=== PATIENT | female | born 1975 | race Caucasian/White ===

== ENCOUNTER 2016-06-11 21:49 | Emergency (ER) | payer MEDICAID ==
--- NOTE | 2016-06-11 21:54 | ER Document Report ---
[id number] by provider: 21:51 Mode of Arrival: Ambulatory Information source: Patient Notes: I have greeted and performed a rapid initial assessment of this patient. A comprehensive ED assessment and evaluation of the patient, analysis of test results and completion of the medical decision making process will be conducted by additional ED providers. TRAVEL OUTSIDE OF THE [place] IN LAST 30 DAYS: No - HPI Patient complains to provider of: LEFT ARM PAIN AND VOMITING Onset: This evening Onset/Duration: Sudden Context: PAIN IS FROM LEFT SHOULDER BLADE DOWN ARM. TOOK 4 BABY [employer]IRIN AT HOME. Quality of pain: Achy, Sharp Severity: Severe Pain Level: 5 Associated Symptoms: Nausea, Vomiting - X 4 Exacerbated by: Denies Relieved by: Denies Similar symptoms previously: No Recently seen / treated by doctor: No - Related Data Smoking: Cigarettes Frequency of alcohol use: None Drug Abuse: None Pertinent History: DM 1 Allergies/Adverse Reactions: Penicillins Allergy (Verified 02/06/16 07:49) Past Medical History Pulmonary Medical History: Reports: Hx Bronchitis Denies: Hx Asthma Neurological Medical History: Reports: Hx Migraine Endocrine Medical History: Reports: Hx Diabetes Mellitus Type 2 GI Medical History: Reports: Hx Gastritis Musculoskeltal Medical History: Reports Hx Musculoskeletal Trauma Traumatic Medical History: Reports: Hx Fractures Past Surgical History: Reports: Hx Oral Surgery - wisdom, Hx Orthopedic Surgery - Right foot, Hx Tonsillectomy, Hx Tubal Ligation - Immunizations Immunizations up to date: Yes Hx Diphtheria, Pertussis, Tetanus Vaccination: Yes Physical Exam - Vital signs Vitals: Temp Pulse Resp BP Pulse Ox 97.6 F 101 H 18 131/88 H 97 06/11/16 21:53 06/11/16 21:53 06/11/16 21:53 06/11/16 21:53 06/11/16 21:53 Course - Vital Signs Vital signs: Temp Pulse Resp BP Pulse Ox 98.5 F 101 H 20 99/68 L 96 06/11/16 23:28 06/11/16 21:53 06/11/16 23:26 06/11/16 23:26 06/11/16 23:26 - Laboratory Result Diagrams: 06/11/16 22:32 06/11/16 22:32 Laboratory results interpreted by me: 06/11/16 22:32 BUN 21 H Glucose 130 H Calcium 10.3 H AST 12 L Doctor's Discharge - Discharge Clinical Impression: Left shoulder pain Condition: Good Disposition: HOME, SELF-CARE Additional Instructions: You have been seen in the Emergency Department (ED) today for shoulder pain. Your workup and exam have not shown any acute abnormalities and you are likely suffering from muscle strain but there is no treatment that will fix your symptoms at this time. Please take the naproxen that has been prescribed as directed. You should also purchase a local lidocaine cream such as "aspercreme with lidocaine" and use per bottle instructions to the affected area. Apply heat to the area as often as you are able. Please return if your worsening pain, weakness, numbness, fever greater than 101 F, or any other symptoms that are concerning to you. Follow-up with your primary care doctor in the next 1-2 days. Prescriptions: Naproxen 500 mg PO BID #60 tablet Referrals: Timur Jean-Baptiste [employer] G[employer] DEALER [Primary Care Provider] - Follow up in 3-5 days
[2016-06-11 22:47] LABS: ABSOLUTE BASOPHILS # (AUTO) 0.1 10^3/uL (0.0-0.2); ABSOLUTE EOSINOPHILS # (AUTO) 0.2 10^3/uL (0.0-0.6); ABSOLUTE LYMPHOCYTES (AUTO) 2.7 10^3/uL (0.5-4.7); ABSOLUTE MONOCYTES (AUTO) 0.6 10^3/uL (0.1-1.4); ABSOLUTE NEUT (AUTO) 4.3 10^3/uL (1.7-8.2); BASOPHILS % (AUTO) 1.4 % (0-2); EOSINOPHILS % (AUTO) 2.1 % (0-6); HEMATOCRIT 43.6 % (36.0-47.0); HEMOGLOBIN 14.9 g/dL (12.0-15.5); HGB HCT DIFFERENCE 1.1; LYMPHOCYTES % (AUTO) 34.1 % (13-45); MEAN CORPUSCULAR HEMOGLOBIN 30.7 pg (27.0-33.4); MEAN CORPUSCULAR HGB CONC 34.2 g/dL (32.0-36.0); MEAN CORPUSCULAR VOLUME 90 fl (80-97); MONOCYTES % (AUTO) 7.7 % (3-13); RED BLOOD COUNT 4.87 10^6/uL (3.72-5.28); RED CELL DISTRIBUTION WIDTH 12.9 % (11.5-14.0); SEGMENTED NEUTROPHILS % (AUTO) 54.7 % (42-78); WHITE BLOOD COUNT 7.8 10^3/uL (4.0-10.5)
[2016-06-11 23:02] LABS: ALANINE AMINOTRANSFERASE 20 U/L (9-52); ALBUMIN 4.6 g/dL (3.5-5.0); ALKALINE PHOSPHATASE 71 U/L (38-126); ANION GAP 14 (5-19); ASPARTATE AMINO TRANSFERASE 12 U/L (14-36); BILIRUBIN,TOTAL 0.5 mg/dL (0.2-1.3); BLOOD UREA NITROGEN 21 mg/dL (7-20); CALCIUM 10.3 mg/dL (8.4-10.2); CARBON DIOXIDE 23 mmol/L (22-30); CHLORIDE 107 mmol/L (98-107); CREATINE KINASE 56 U/L (30-135); CREATININE RESULT 0.68 mg/dL (0.52-1.25); GLUCOSE 130 mg/dL (75-110); POTASSIUM 4.3 mmol/L (3.6-5.0); SODIUM 143.6 mmol/L (137-145); TOTAL PROTEIN 7.3 g/dL (6.3-8.2)
[2016-06-11] MEDS ORDERED: KETOROLAC TROMETHAMINE INJ/PF 30 MG/1 ML SDV IV ONE (23:13)
[2016-06-11] MEDS ORDERED: HYDROCODONE/ACETAMINOPHEN 5-325 MG 6 TAB/DSPK PO PRN (23:13)
[2016-06-11 23:14] LABS: CREATINE KINASE MB 0.62 ng/mL (<4.55); TROPONIN I < 0.012 ng/mL
--- NOTE | 2016-06-11 23:17 | ER Document Report ---
ED General - General Chief Complaint: Shoulder Pain Stated Complaint: PAIN DOWN LEFT ARM,VOMITING Mode of Arrival: Ambulatory Notes: Patient is a 41-year-old female without significant past medical history who presents with 7 hours of left scapular and shoulder pain. Describes the pain, sharp, severe pain. Unchanged since onset. She has not tried anything for relief of her pain. Denies a history of similar symptoms in the past. She has not seen her primary care physician regarding today's concerns. She denies any associated chest pain, shortness of breath, syncope, or abdominal pain. States she did have one episode of vomiting in association with this pain. States the pain does shoot down her left arm but denies any associated weakness or numbness. No trauma. TRAVEL OUTSIDE OF THE [place] IN LAST 30 DAYS: No - Related Data Allergies/Adverse Reactions: Penicillins Allergy (Verified 02/06/16 07:49) Past Medical History - General Information source: Patient - Social History Smoking Status: Current Every Day Smoker Frequency of alcohol use: None Drug Abuse: None Lives with: Spouse/Significant other Family History: Reviewed & Not Pertinent Patient has suicidal ideation: No Patient has homicidal ideation: No Pulmonary Medical History: Reports: Hx Bronchitis Denies: Hx Asthma Neurological Medical History: Reports: Hx Migraine Endocrine Medical History: Reports: Hx Diabetes Mellitus Type 2 Renal/ Medical History: Denies: Hx Peritoneal Dialysis GI Medical History: Reports: Hx Gastritis Musculoskeltal Medical History: Reports Hx Musculoskeletal Trauma Traumatic Medical History: Reports: Hx Fractures Past Surgical History: Reports: Hx Oral Surgery - wisdom, Hx Orthopedic Surgery - Right foot, Hx Tonsillectomy, Hx Tubal Ligation - Immunizations Immunizations up to date: Yes Hx Diphtheria, Pertussis, Tetanus Vaccination: Yes Hx Pneumococcal Vaccination: 02/09/14 Review of Systems - Review of Systems Notes: Constitutional: Negative for fever. HENT: Negative for sore throat. Eyes: Negative for visual changes. Cardiovascular: Negative for chest pain. Respiratory: Negative for shortness of breath. Gastrointestinal: Negative for abdominal pain, vomiting or diarrhea. Genitourinary: Negative for dysuria. Musculoskeletal: Positive for left shoulder pain Skin: Negative for rash. Neurological: Negative for headaches, weakness or numbness. 10 point ROS negative except as marked above and in HPI. Physical Exam - Vital signs Vitals: Temp Pulse Resp BP Pulse Ox 97.6 F 101 H 18 131/88 H 97 06/11/16 21:53 06/11/16 21:53 06/11/16 21:53 06/11/16 21:53 06/11/16 21:53 Interpretation: Tachycardic Notes: PHYSICAL EXAMINATION: GENERAL: Well-appearing, well-nourished and in no acute distress. HEAD: Atraumatic, normocephalic. EYES: Pupils equal round and reactive to light, extraocular movements intact, sclera anicteric, conjunctiva are normal. ENT: nares patent, oropharynx clear without exudates. Moist mucous membranes. NECK: Normal range of motion, supple without lymphadenopathy LUNGS: Breath sounds clear to auscultation bilaterally and equal. No wheezes rales or rhonchi. HEART: Regular rate and rhythm without murmurs ABDOMEN: Soft, nontender, normoactive bowel sounds. No guarding, no rebound. No masses appreciated. EXTREMITIES: Severe pain with abduction of the left shoulder past 90. Pain on palpation of the left superior portion of the scapula NEUROLOGICAL: No focal neurological deficits. Moves all extremities spontaneously and on command. PSYCH: Normal mood, normal affect. SKIN: Warm, Dry, normal turgor, no rashes or lesions noted. Course - Re-evaluation Re-evalutation: 06/11/16 23:17 Patient presents with left shoulder pain reproducible on exam over palpation of the trapezius and deltoid. There is a patient also has an associated neuropraxia. No focal neurologic deficits on exam. Clinical history is not consistent with ACS, pulmonary embolus or aortic dissection. EKG unremarkable. Cardiac markers were in triage are unremarkable. Chest x-ray is clear. Blood pressures are equal in both arms.At this time will discharge with return precautions and follow-up recommendations. Verbal discharge instructions given a the bedside and opportunity for questions given. Medication warnings reviewed. Patient is in agreement with this plan and has verbalized understanding of return precautions and the need for primary care follow-up in the next 24-72 hours. - Vital Signs Vital signs: Temp Pulse Resp BP Pulse Ox 98.5 F 101 H 20 99/68 L 96 06/11/16 23:28 06/11/16 21:53 06/11/16 23:26 06/11/16 23:26 06/11/16 23:26 - Laboratory Result Diagrams: 06/11/16 22:32 06/11/16 22:32 Laboratory results interpreted by me: 06/11/16 22:32 BUN 21 H Glucose 130 H Calcium 10.3 H AST 12 L - Diagnostic Test Radiology reviewed: Image reviewed, Reports reviewed Radiology results interpreted by me: 06/11/16 23:18 Chest x-ray: No acute infiltrate - EKG Interpretation by Me Additional EKG results interpreted by me: 06/11/16 23:18 Normal sinus rhythm. Rate 92. No ST elevations or depressions. QTC 441. Discharge - Discharge Clinical Impression: Left shoulder pain Qualifiers: Chronicity: acute Qualified Code(s): M25.512 - Pain in left shoulder Condition: Good Disposition: HOME, SELF-CARE Additional Instructions: You have been seen in the Emergency Department (ED) today for shoulder pain. Your workup and exam have not shown any acute abnormalities and you are likely suffering from muscle strain but there is no treatment that will fix your symptoms at this time. Please take the naproxen that has been prescribed as directed. You should also purchase a local lidocaine cream such as "aspercreme with lidocaine" and use per bottle instructions to the affected area. Apply heat to the area as often as you are able. Please return if your worsening pain, weakness, numbness, fever greater than 101 F, or any other symptoms that are concerning to you. Follow-up with your primary care doctor in the next 1-2 days. Prescriptions: Naproxen 500 mg PO BID #60 tablet Referrals: Timur Jean-Baptiste MINING ANALYST [Primary Care Provider] - Follow up in 3-5 days
[2016-06-11 23:28] VITALS: BP 99/68
--- NOTE | 2016-06-12 09:22 | EKG REPORT ---
SEVERITY:- BORDERLINE ECG - SINUS RHYTHM BORDERLINE T ABNORMALITIES, INFERIOR LEADS : Confirmed by: Sheridan Padilla 12-Jun-2016 09:21:43
--- NOTE | 2016-06-12 11:23 | EKG REPORT ---
SEVERITY:- NORMAL ECG - SINUS RHYTHM : Confirmed by: Sheridan Padilla 12-Jun-2016 11:22:59
== END 2016-06-11 23:41 | disposition home or self-care (01) ==
LOC: ER 21:49
DX: S44.92XA Injury of unspecified nerve at shoulder and upper arm level, left arm, initial encounter (principal); X58.XXXA Exposure to other specified factors, initial encounter; M25.512 Pain in left shoulder; R11.10 Vomiting, unspecified; F17.200 Nicotine dependence, unspecified, uncomplicated; E11.9 Type 2 diabetes mellitus without complications; R00.0 Tachycardia, unspecified
CPT/HCPCS: 93005 ×2; 99284; 36415; 82553; 82550; 85025; 80053; 84484; 71010; 93010 ×2; J1885

== ENCOUNTER → 2017-02-24 | Outpatient (CLI) | payer OTHER ==
[2017-02-24 10:26] LABS: ABSOLUTE EOSINOPHILS # (AUTO) 0.3 10^3/uL (0.0-0.6); ABSOLUTE LYMPHOCYTES (AUTO) 1.8 10^3/uL (0.5-4.7); ABSOLUTE MONOCYTES (AUTO) 0.4 10^3/uL (0.1-1.4); ABSOLUTE NEUT (AUTO) 4.4 10^3/uL (1.7-8.2); BASOPHILS % (AUTO) 0.7 % (0-2); EOSINOPHILS % (AUTO) 3.9 % (0-6); HEMATOCRIT 40.7 % (36.0-47.0); HEMOGLOBIN 14.2 g/dL (12.0-15.5); HGB HCT DIFFERENCE 1.9; LYMPHOCYTES % (AUTO) 25.6 % (13-45); MEAN CORPUSCULAR HEMOGLOBIN 31.2 pg (27.0-33.4); MEAN CORPUSCULAR VOLUME 89 fl (80-97); MONOCYTES % (AUTO) 5.5 % (3-13); RED BLOOD COUNT 4.56 10^6/uL (3.72-5.28); SEGMENTED NEUTROPHILS % (AUTO) 64.3 % (42-78); WHITE BLOOD COUNT 6.9 10^3/uL (4.0-10.5)
[2017-02-24 10:58] LABS: ALANINE AMINOTRANSFERASE 26 U/L (9-52); ALBUMIN 4.3 g/dL (3.5-5.0); ALKALINE PHOSPHATASE 72 U/L (38-126); ANION GAP 14 (5-19); ASPARTATE AMINO TRANSFERASE 10 U/L (14-36); BILIRUBIN,DIRECT 0.4 mg/dL (0.0-0.4); BILIRUBIN,TOTAL 0.5 mg/dL (0.2-1.3); BLOOD UREA NITROGEN 11 mg/dL (7-20); CALCIUM 9.5 mg/dL (8.4-10.2); CARBON DIOXIDE 23 mmol/L (22-30); CHLORIDE 107 mmol/L (98-107); CHOLESTEROL 162.53 mg/dL (0-200); CREATININE RESULT 0.54 mg/dL (0.52-1.25); Direct HDL 37 mg/dL (>40); GLUCOSE 161 mg/dL (75-110); POTASSIUM 4.8 mmol/L (3.6-5.0); SODIUM 143.5 mmol/L (137-145); TRIGLYCERIDES 193 mg/dL (<150)
[2017-02-24 11:09] LABS: DIRECT LDL 100 mg/dL (<100)
[2017-02-24 11:11] LABS: VLDL CHOLESTEROL 38.6 mg/dL (10-31)
--- NOTE | 2017-02-24 12:25 | RADIOLOGY REPORT (SQ) ---
EXAM DESCRIPTION: CHEST PA/LATERAL COMPLETED DATE/TIME: 02/24/2017 9:25 am REASON FOR STUDY: COPD COMPARISON: 06/11/2016 EXAM PARAMETERS: NUMBER OF VIEWS: two views TECHNIQUE: Digital Frontal and Lateral radiographic views of the chest acquired. RADIATION DOSE: NA LIMITATIONS: none FINDINGS: LUNGS AND PLEURA: No opacities, masses or pneumothorax. No pleural effusion. MEDIASTINUM AND HILAR STRUCTURES: No masses or contour abnormalities. HEART AND VASCULAR STRUCTURES: Heart normal size. No evidence for failure. BONES: No acute findings. HARDWARE: None in the chest. OTHER: No other significant finding. IMPRESSION: NO SIGNIFICANT RADIOGRAPHIC FINDING IN THE CHEST. TECHNICAL DOCUMENTATION: JOB ID: [id number] [employer]- All Rights Reserved
== END ==
LOC: OD 08:41
DX: E78.5 Hyperlipidemia, unspecified (principal); E10.8 Type 1 diabetes mellitus with unspecified complications; J44.9 Chronic obstructive pulmonary disease, unspecified
CPT/HCPCS: 36415; 71020; 80053; 80061; 83036; 84443; 85025

== ENCOUNTER 2017-03-22 17:09 | Inpatient (IN) | payer SELFPAY ==
--- NOTE | 2017-03-22 17:19 | ER Document Report ---
ED Medical Screen (RME) - General Chief Complaint: Shortness Of Breath Stated Complaint: SHORTNESS OF BREATH Time Seen by Provider: 03/22/17 17:13 Mode of Arrival: Wheelchair Information source: Patient Notes: 42-year-old female smoker presents with complaints of shortness of breath for the past 4 days. Patient denies a fever admits to nonproductive cough, patient has been smoking since she was 15 I have greeted and performed a rapid initial assessment of this patient. A comprehensive ED assessment and evaluation of the patient, analysis of test results and completion of the medical decision making process will be conducted by additional ED providers. PHYSICAL EXAMINATION: GENERAL: Well-appearing, well-nourished and in no acute distress. HEAD: Atraumatic, normocephalic. EYES: Pupils equal round extraocular movements intact, conjunctiva are normal. ENT: Nares patent NECK: Normal range of motion LUNGS: No respiratory distress Musculoskeletal: Normal range of motion NEUROLOGICAL: Normal speech, normal gait. PSYCH: Normal mood, normal affect. SKIN: Warm, Dry, normal turgor, no rashes or lesions noted. TRAVEL OUTSIDE OF THE [place] IN LAST 30 DAYS: No - Related Data Allergies/Adverse Reactions: Penicillins Allergy (Verified 03/22/17 17:10) Past Medical History Pulmonary Medical History: Reports: Hx Bronchitis Denies: Hx Asthma Neurological Medical History: Reports: Hx Migraine Endocrine Medical History: Reports: Hx Diabetes Mellitus Type 2 Renal/ Medical History: Denies: Hx Peritoneal Dialysis GI Medical History: Reports: Hx Gastritis Musculoskeltal Medical History: Reports Hx Musculoskeletal Trauma Traumatic Medical History: Reports: Hx Fractures Past Surgical History: Reports: Hx Oral Surgery - wisdom, Hx Orthopedic Surgery - Right foot, Hx Tonsillectomy, Hx Tubal Ligation - Immunizations Immunizations up to date: Yes Hx Diphtheria, Pertussis, Tetanus Vaccination: Yes Physical Exam - Vital signs Vitals: Temp Pulse Resp BP Pulse Ox 99.2 F 100 32 H 105/48 L 93 03/22/17 17:10 03/22/17 17:10 03/22/17 17:10 03/22/17 17:10 03/22/17 17:10 Course - Vital Signs Vital signs: Temp Pulse Resp BP Pulse Ox 99.2 F 100 32 H 105/48 L 93 03/22/17 17:10 03/22/17 17:10 03/22/17 17:10 03/22/17 17:10 03/22/17 17:10
[2017-03-22 17:52] LABS: ABSOLUTE EOSINOPHILS # (AUTO) 0.6 10^3/uL (0.0-0.6); ABSOLUTE LYMPHOCYTES (AUTO) 1.5 10^3/uL (0.5-4.7); ABSOLUTE MONOCYTES (AUTO) 0.7 10^3/uL (0.1-1.4); BASOPHILS % (AUTO) 0.1 % (0-2); EOSINOPHILS % (AUTO) 5.2 % (0-6); HEMATOCRIT 40.4 % (36.0-47.0); HEMOGLOBIN 14.2 g/dL (12.0-15.5); HGB HCT DIFFERENCE 2.2; LYMPHOCYTES % (AUTO) 13.8 % (13-45); MEAN CORPUSCULAR HGB CONC 35.1 g/dL (32.0-36.0); MEAN CORPUSCULAR VOLUME 88 fl (80-97); MONOCYTES % (AUTO) 6.5 % (3-13); RED BLOOD COUNT 4.58 10^6/uL (3.72-5.28); RED CELL DISTRIBUTION WIDTH 13.4 % (11.5-14.0); SEGMENTED NEUTROPHILS % (AUTO) 74.4 % (42-78); WHITE BLOOD COUNT 10.7 10^3/uL (4.0-10.5)
--- NOTE | 2017-03-22 17:54 | RADIOLOGY REPORT (SQ) ---
EXAM DESCRIPTION: CHEST SINGLE VIEW COMPLETED DATE/TIME: 03/22/2017 5:45 pm REASON FOR STUDY: sob COMPARISON: 06/11/2016 NUMBER OF VIEWS: Two view. TECHNIQUE: Frontal and lateral radiographic views of the chest acquired. LIMITATIONS: None. FINDINGS: LUNGS AND PLEURA: Mild perihilar interstitial changes. No consolidation, effusion, or pne umothorax. MEDIASTINUM AND HILAR STRUCTURES: No masses. No contour abnormalities. HEART AND VASCULAR STRUCTURES: Heart normal in size and contour. No evidence for failure. BONES: No acute findings. HARDWARE: None in the chest. OTHER: No other significant finding. IMPRESSION: REACTIVE AIRWAY DISEASE VERSUS VIRAL SYNDROME. NO CONSOLIDATION. TECHNICAL DOCUMENTATION: JOB ID: [id number] [employer]- All Rights Reserved
[2017-03-22 18:10] LABS: ALANINE AMINOTRANSFERASE 34 U/L (9-52); ALBUMIN 4.3 g/dL (3.5-5.0); ALKALINE PHOSPHATASE 114 U/L (38-126); ANION GAP 13 (5-19); ASPARTATE AMINO TRANSFERASE 12 U/L (14-36); BILIRUBIN,DIRECT 0.4 mg/dL (0.0-0.4); BILIRUBIN,TOTAL 0.6 mg/dL (0.2-1.3); BLOOD UREA NITROGEN 5 mg/dL (7-20); CALCIUM 9.7 mg/dL (8.4-10.2); CARBON DIOXIDE 26 mmol/L (22-30); CHLORIDE 104 mmol/L (98-107); CREATINE KINASE 58 U/L (30-135); CREATININE RESULT 0.56 mg/dL (0.52-1.25); GLUCOSE 187 mg/dL (75-110); TOTAL PROTEIN 7.1 g/dL (6.3-8.2)
[2017-03-22 18:21] LABS: APPEARANCE,URINE SLIGHTLY-CLOUDY; BILIRUBIN,URINE NEGATIVE (NEGATIVE); GLUCOSE, URINE NEGATIVE (NEGATIVE); KETONES,URINE NEGATIVE (NEGATIVE); LEUKOCYTE ESTERASE,URINE NEGATIVE (NEGATIVE); NITRITE,URINE NEGATIVE (NEGATIVE); PROTEIN,URINE NEGATIVE (NEGATIVE); URINE SPECIFIC GRAVITY 1.008; UROBILINOGEN,URINE NEGATIVE mg/dL (<2.0)
[2017-03-22 18:23] LABS: TROPONIN I < 0.012 ng/mL
[2017-03-22] MEDS ORDERED: ALBUTEROL SULFATE 0.083% NEB 2.5 MG/3 ML AMPUL NEB ONE ×2 (18:23→18:51)
--- NOTE | 2017-03-22 18:49 | ER Document Report ---
ED Respiratory Problem - General Mode of Arrival: Wheelchair Information source: Patient TRAVEL OUTSIDE OF THE [place] IN LAST 30 DAYS: No <AVTAR STALLINGS - Last Filed: 03/22/17 23:12> <FOX CARSON - Last Filed: 03/22/17 23:47> - General Chief Complaint: Shortness Of Breath Stated Complaint: SHORTNESS OF BREATH Time Seen by Provider: 03/22/17 17:13 Notes: Patient is a 42 year old female that presents to the emergency department complaining of shortness of breath and vomiting onset 2 days ago. Patient states that on 03/20/2017 she woke up and vomited then proceeded to go to work. Patient states she has not been to work since 03/20/2017. At bedside patient appears very uncomfortable and exhausted. Associated symptoms include chest pain , productive cough, and diaphoresis. Patient denies fever. (AVTAR STALLINGS) - Related Data Allergies/Adverse Reactions: Penicillins Allergy (Verified 03/22/17 17:10) Home Medications: Current Home Medications Insulin Detemir [Levemir Insulin 100 units/mL] 21 units SUBCUT BID 03/22/17 [ History] Past Medical History - General Information source: Patient - Social History Smoking Status: Smoker,Current Status Unk Cigarette use (# per day): No Chew tobacco use (# tins/day): No Smoking Education Provided: No Frequency of alcohol use: None Drug Abuse: None Family History: Reviewed & Not Pertinent Patient has suicidal ideation: No Patient has homicidal ideation: No Pulmonary Medical History: Reports: Hx Bronchitis Neurological Medical History: Reports: Hx Migraine Endocrine Medical History: Reports: Hx Diabetes Mellitus Type 2 GI Medical History: Reports: Hx Gastritis Musculoskeltal Medical History: Reports Hx Musculoskeletal Trauma Traumatic Medical History: Reports: Hx Fractures Past Surgical History: Reports: Hx Oral Surgery - wisdom, Hx Orthopedic Surgery - Right foot, Hx Tonsillectomy, Hx Tubal Ligation - Immunizations Immunizations up to date: Yes Hx Diphtheria, Pertussis, Tetanus Vaccination: Yes Hx Pneumococcal Vaccination: 02/09/14 <AVTAR STALLINGS - Last Filed: 03/22/17 23:12> Review of Systems - Review of Systems Constitutional: See HPI, Diaphoresis. denies: Fever EENT: No symptoms reported Cardiovascular: See HPI, Chest pain, Dyspnea Respiratory: See HPI, Cough - productive Gastrointestinal: No symptoms reported Genitourinary: No symptoms reported Female Genitourinary: No symptoms reported Musculoskeletal: No symptoms reported Skin: No symptoms reported Hematologic/Lymphatic: No symptoms reported Neurological/Psychological: No symptoms reported -: Yes All other systems reviewed and negative <CHANDRAKANTKRISBRADLY - Last Filed: 03/22/17 23:12> Physical Exam <AVTAR STALLINGS - Last Filed: 03/22/17 23:12> <FOX CARSON - Last Filed: 03/22/17 23:47> - Vital signs Vitals: Temp Pulse Resp BP Pulse Ox 99.2 F 100 32 H 105/48 L 93 03/22/17 17:10 03/22/17 17:10 03/22/17 17:10 03/22/17 17:10 03/22/17 17:10 - Notes Notes: GENERAL: Alert, patient is uncomfortable and exhausted. HEAD: Normocephalic, atraumatic. EYES: Pupils equal, round, and reactive to light. Extraocular movements intact. ENT: Oral mucosa moist, tongue midline. Nares patent, no nasal septal hematoma, TM's retracted. Clear rhinorrhea bilaterally. NECK: Full range of motion. Supple. Trachea midline. LUNGS: Tight with poor air movement and end expiratory wheezes. Respiratory distress. Tachypneic. HEART: Regular rate and rhythm. No murmurs, gallops, or rubs. ABDOMEN: Soft, non-tender. Non-distended. Bowel sounds present in all 4 quadrants. EXTREMITIES: Moves all 4 extremities spontaneously. No edema, radial and dorsalis pedis pulses 2/4 bilaterally. No cyanosis. NEUROLOGICAL: Alert and oriented x3. Normal speech. Biceps and patellar DTRs 2+ bilaterally. PSYCH: Normal affect, normal mood. SKIN: Warm, dry, normal turgor. No rashes or lesions noted. (AVTAR STALLINGS) Course - Laboratory Result Diagrams: 03/22/17 17:27 03/22/17 17:27 <AVTAR STALLINGS - Last Filed: 03/22/17 23:12> - Laboratory Result Diagrams: 03/22/17 17:27 03/22/17 17:27 <FOX CARSON - Last Filed: 03/22/17 23:47> - Re-evaluation Re-evalutation: 03/22/17 20:05 Presentation consistent with influenza, out of timeframe for Tamiflu, chest x- ray shows reactive airway disease versus viral syndrome, suspect patient has some underlying COPD given her history of smoking, no improvement in respiratory status despite 3 breathing treatments and Solu-Medrol. Discussed patient with Dr. More who agrees to admit the patient to his service for sick respiratory failure suspect COPD exacerbation and influenza. (FOX CARSON) - Vital Signs Vital signs: Temp Pulse Resp BP Pulse Ox 98.3 F 99 32 H 131/54 H 92 03/22/17 22:00 03/22/17 22:00 03/22/17 22:01 03/22/17 22:01 03/22/17 22:01 - Laboratory Laboratory results interpreted by me: 03/22/17 03/22/17 17:27 17:27 WBC 10.7 H BUN 5 L Glucose 187 H AST 12 L - EKG Interpretation by Me Additional EKG results interpreted by me: 03/22/17 20:06 EKG shows sinus rhythm rate 94, normal axis, normal intervals, no ST segment elevations or depressions, no T-wave inversions per my interpretation. (FOX CARSON) Discharge <AVTAR STALLINGS - Last Filed: 03/22/17 23:12> - Discharge Admitting Provider: Ioana More Unit Admitted: Telemetry <FOX CARSON - Last Filed: 03/22/17 23:47> - Discharge Clinical Impression: Influenza, Acute respiratory failure with hypoxia Condition: Serious Disposition: ADMITTED OBSERVATION Scribe Attestation: 03/22/17 23:47 I personally performed the services described in the documentation, reviewed and edited the documentation which was dictated to the scribe in my presence, and it accurately records my words and actions. (FOX CARSON) Scribe Documentation - Scribe Written by Will:: Will Shelton, 03/22/2017 19:00 acting as scribe for :: Ember <AVTAR STALLINGS - Last Filed: 03/22/17 23:12>
[2017-03-22] MEDS ORDERED: IPRATROPIUM/ALBUTEROL 0.5-2.5 MG/3 ML AMPUL NEB ONE (18:51)
[2017-03-22] MEDS ORDERED: METHYLPREDNISOLONE INJ 125 MG/2 ML SDV IV ONE (18:51)
[2017-03-22] MEDS ORDERED: KETOROLAC TROMETHAMINE 60 MG/2 ML SDV IV ONE (19:49)
[2017-03-22] MEDS ORDERED: IPRATROPIUM/ALBUTEROL 0.5-2.5 MG/3 ML AMPUL NEB PRN (20:03)
[2017-03-22] MEDS ORDERED: GUAIFENESIN SYRP 200 MG/10 ML UDC PO PRN (20:03)
[2017-03-22] MEDS ORDERED: CHLORPHENIRAMINE MALEATE 4 MG TABLET PO ONE (20:03)
[2017-03-22] MEDS ORDERED: DEXTROSE 50%-WATER 25 GM/50 ML DISP.SYRIN IV PRN ×2 (20:06)
[2017-03-22] MEDS ORDERED: DEXTROSE 40% GEL 15 GM TUBE PO PRN ×2 (20:06)
[2017-03-22] MEDS ORDERED: GLUCAGON,HUMAN RECOMB 1 MG INJ IM PRN (20:06)
--- NOTE | 2017-03-22 21:11 | EKG REPORT ---
SEVERITY:- NORMAL ECG - SINUS RHYTHM : Confirmed by: Félix Castellanos MD 22-Mar-2017 21:11:04
[2017-03-22] MEDS ORDERED: HEPARIN SOD (PORCINE) 5,000 UNIT/ML 1 ML SYRINGE SUBCUT SCH (22:00)
[2017-03-22] MEDS: GUAIFENESIN 600 MG TABLET.SA PO SCH (23:28)
[2017-03-22] MEDS: LEVOFLOXACIN 750 MG/D5W RTU 750 MG/150 ML RTUPB IV SCH (23:29)
[2017-03-22] MEDS: HEPARIN SOD (PORCINE) 5,000 UNIT/ML 1 ML SYRINGE SUBCUT SCH (23:33)
[2017-03-22] MEDS: FLUTICASONE NASAL SPRAY 50 MCG/SPRY 120 SPRAY/16 GM NASL SCH (23:38)
[2017-03-23] MEDS: KETOROLAC TROMETHAMINE INJ/PF 30 MG/1 ML SDV IV PRN ×2 (01:57→09:50)
[2017-03-23] MEDS: IPRATROPIUM/ALBUTEROL 0.5-2.5 MG/3 ML AMPUL NEB SCH ×4 (02:08→19:50)
--- NOTE | 2017-03-23 05:48 | PDOC H&P ---
History of Present Illness Admission Date/PCP: 03/22/17 20:03 [facility] Patient complains of: Shortness of breath and cough History of Present Illness: LESTER FREDERICK is a 42 year old female with a past medical history of diabetes , chronic bronchitis tobacco dependence, COPD and morbid obesity. Patient been her usual state of health until approximately 4 days ago noting shortness of breath and a nonproductive cough symptoms have progressively worsened she denies runny nose sore throat or fever. In the emergency room has oxygen saturations in the mid 80s on room air she is placed on oxygen and BiPAP, receives empiric antibiotics refer to the hospitalist for admission. Patient denies exposure to inhalation of smoke, allergen or volatile chemical. Patient is speaking in full sentences but provides poor effort during exam. She denies chest pain, nausea vomiting or diaphoresis. Past Medical History Pulmonary Medical History: Reports: Bronchitis, Chronic Obstructive Pulmonary Disease (COPD) Denies: Asthma Neurological Medical History: Reports: Migraine Endocrine Medical History: Reports: Diabetes Mellitus Type 2 Psychiatric Medical History: Reports: Tobacco Dependency Denies: Depression Past Surgical History Past Surgical History: Reports: Orthopedic Surgery - Right foot, Tonsillectomy, Tubal Ligation Social History Information Source: Patient Smoking Status: Current Every Day Smoker Cigarettes Packs Per Day: 0.5 Number of Years Smokin Frequency of Alcohol Use: None Hx Recreational Drug Use: No Hx Prescription Drug Abuse: No - Advance Directive Resuscitation Status: Full Code Family History Family History: DM, Hypertension Parental Family History Reviewed: Yes Children Family History Reviewed: Yes Sibling(s) Family History Reviewed.: Yes Medication/Allergy Home Medications: Metformin HCl [Glucophage] 1,000 mg PO BIDACBS #60 tablet 10/09/13 Insulin Detemir [Levemir Insulin 100 units/mL] 21 units SUBCUT BID 03/22/17 Allergies/Adverse Reactions: Penicillins Allergy (Verified 03/22/17 17:10) Review of Systems Constitutional: ABSENT: chills, fever(s), headache(s), weight gain, weight loss Eyes: ABSENT: visual disturbances Ears: ABSENT: hearing changes Cardiovascular: ABSENT: chest pain, dyspnea on exertion, edema, orthropnea, palpitations Respiratory: ABSENT: cough, hemoptysis Gastrointestinal: ABSENT: abdominal pain, constipation, diarrhea, hematemesis, hematochezia, nausea, vomiting Genitourinary: ABSENT: dysuria, hematuria Musculoskeletal: ABSENT: joint swelling Integumentary: ABSENT: rash, wounds Neurological: ABSENT: abnormal gait, abnormal speech, confusion, dizziness, focal weakness, syncope Psychiatric: ABSENT: anxiety, depression, homidical ideation, suicidal ideation Endocrine: ABSENT: cold intolerance, heat intolerance, polydipsia, polyuria Hematologic/Lymphatic: ABSENT: easy bleeding, easy bruising Physical Exam Vital Signs: Temp Pulse Resp BP Pulse Ox 97.5 F 87 17 120/68 98 03/23/17 04:00 03/23/17 04:00 03/23/17 04:00 03/23/17 04:00 03/23/17 04:00 General appearance: PRESENT: no acute distress, well-developed, well-nourished Head exam: PRESENT: atraumatic, normocephalic Eye exam: PRESENT: conjunctiva pink, EOMI, PERRLA. ABSENT: scleral icterus Ear exam: PRESENT: normal external ear exam Mouth exam: PRESENT: moist, tongue midline Neck exam: ABSENT: carotid bruit, JVD, lymphadenopathy, thyromegaly Respiratory exam: PRESENT: clear to auscultation annabella. ABSENT: rales, rhonchi, wheezes Cardiovascular exam: PRESENT: RRR. ABSENT: diastolic murmur, rubs, systolic murmur Pulses: PRESENT: normal dorsalis pedis pul Vascular exam: PRESENT: normal capillary refill GI/Abdominal exam: PRESENT: normal bowel sounds, soft. ABSENT: distended, guarding, mass, organolmegaly, rebound, tenderness Rectal exam: PRESENT: deferred Extremities exam: PRESENT: full ROM. ABSENT: calf tenderness, clubbing, pedal edema Neurological exam: PRESENT: alert, awake, oriented to person, oriented to place , oriented to time, oriented to situation, CN II-XII grossly intact. ABSENT: motor sensory deficit Psychiatric exam: PRESENT: appropriate affect, normal mood. ABSENT: homicidal ideation, suicidal ideation Skin exam: PRESENT: dry, intact, warm. ABSENT: cyanosis, rash Results Impressions: Chest X-Ray 03/22/17 17:16 IMPRESSION: REACTIVE AIRWAY DISEASE VERSUS VIRAL SYNDROME. NO CONSOLIDATION. Assessment & Plan - Diagnosis (1) Acute exacerbation of chronic bronchitis Is this a current diagnosis for this admission?: Yes Plan: Discontinue tobacco, incentive spirometry, flutter valve, albuterol and Atrovent with empiric antibiotics follow-up CBC consider additional chest imaging. (2) COPD exacerbation Is this a current diagnosis for this admission?: Yes Plan: Please see #1 (3) Morbid obesity Is this a current diagnosis for this admission?: Yes Plan: Morbid obesity will evaluate for metabolic cause with evaluation of thyroid function and dietitian consultation (4) Diabetes Is this a current diagnosis for this admission?: Yes Plan: Hold metformin otherwise outpatient regiment with sliding scale insulin (5) Acute respiratory failure with hypoxia Is this a current diagnosis for this admission?: Yes Plan: Please see #1 - Time Time Spent: 30 to 50 Minutes
[2017-03-23 05:56] LABS: HEMATOCRIT 38.9 % (36.0-47.0); HEMOGLOBIN 13.4 g/dL (12.0-15.5); HGB HCT DIFFERENCE 1.3; MEAN CORPUSCULAR HEMOGLOBIN 31.1 pg (27.0-33.4); MEAN CORPUSCULAR HGB CONC 34.4 g/dL (32.0-36.0); MEAN CORPUSCULAR VOLUME 91 fl (80-97); RED BLOOD COUNT 4.29 10^6/uL (3.72-5.28); RED CELL DISTRIBUTION WIDTH 13.2 % (11.5-14.0); WHITE BLOOD COUNT 11.7 10^3/uL (4.0-10.5)
[2017-03-23] MEDS: HEPARIN SOD (PORCINE) 5,000 UNIT/ML 1 ML SYRINGE SUBCUT SCH ×3 (06:17→21:57)
[2017-03-23] MEDS: LANSOPRAZOLE 30 MG TAB.RAP.DR PO SCH ×2 (06:17→16:23)
[2017-03-23 06:22] LABS: ANION GAP 17 (5-19); BLOOD UREA NITROGEN 15 mg/dL (7-20); CALCIUM 9.3 mg/dL (8.4-10.2); CARBON DIOXIDE 22 mmol/L (22-30); CHLORIDE 101 mmol/L (98-107); CREATININE RESULT 0.74 mg/dL (0.52-1.25); POTASSIUM 4.7 mmol/L (3.6-5.0); SODIUM 140.1 mmol/L (137-145)
[2017-03-23 06:34] LABS: BAND NEUTROPHILS % (MANUAL) 4 % (3-5); BASOPHILS % (MANUAL) 0 % (0-2); EOSINOPHILS % (MANUAL) 1 % (0-6); LYMPHOCYTES % (MANUAL) 5 % (13-45); TOTAL CELLS COUNTED 100
[2017-03-23 06:35] LABS: GLUCOSE 417 mg/dL (75-110); POLYCHROMASIA SLIGHT; TOXIC GRANULATION SLIGHT
[2017-03-23] MEDS: INSULIN LISPRO 100 UNIT/ML 3 ML VIAL SUBCUT PRN ×3 (08:00→17:21)
[2017-03-23] MEDS: GUAIFENESIN 600 MG TABLET.SA PO SCH ×2 (09:05→21:57)
[2017-03-23] MEDS ORDERED: INSULIN DETEMIR 100 UNIT/ML 3 ML PEN SUBCUT SCH (10:00)
[2017-03-23] MEDS ORDERED: PREDNISONE 20 MG TABLET PO SCH (10:00)
[2017-03-23] MEDS: FLUTICASONE NASAL SPRAY 50 MCG/SPRY 120 SPRAY/16 GM NASL SCH ×2 (11:08→21:58)
--- NOTE | 2017-03-23 12:09 | PDOC PROGRESS REPORT ---
Subjective Progress Note for:: 03/23/17 Subjective:: Patient is a 42-year-old female with a past medical history significant for diabetes, chronic bronchitis, COPD, obesity and tobacco abuse. The patient presented to the emergency room with a 4 day history of worsening shortness of breath. She also had nausea and vomiting for the 24 hours prior to admission as well. In the emergency room she was found to be quite hypoxic with oxygen saturations in the mid 80s on room air and she was placed on BiPAP support. She was admitted to the hospital. She currently is receiving IV Levaquin as well as p.o. prednisone. She remains on oxygen. Today she states that she is feeling somewhat better than when she first came into the hospital. She states she is still quite short of breath and does not feel as if she is moving air well. She has had no fever chills overnight. No chest pain or heart palpitations. Her nausea and vomiting have resolved. She is not having any abdominal pain. She states that she is not having diarrhea as well although she did have some diarrhea yesterday. She denies dysuria, frequency or hematuria. Physical Exam Vital Signs: Temp Pulse Resp BP Pulse Ox 97.4 F 71 21 H 127/71 H 94 03/23/17 08:00 03/23/17 08:06 03/23/17 08:06 03/23/17 08:00 03/23/17 08:06 Intake & Output 03/22/17 03/23/17 03/24/17 06:59 06:59 06:59 Intake Total 500 Balance 500 Weight 104.7 kg General appearance: PRESENT: no acute distress, well-developed, well-nourished Head exam: PRESENT: atraumatic, normocephalic Eye exam: PRESENT: conjunctiva pink, EOMI, PERRLA. ABSENT: scleral icterus Mouth exam: PRESENT: moist, tongue midline Respiratory exam: PRESENT: decreased breath sounds - Her lungs actually sound fairly clear. She just is not moving air well. Cardiovascular exam: PRESENT: RRR. ABSENT: diastolic murmur, rubs, systolic murmur GI/Abdominal exam: PRESENT: normal bowel sounds, soft. ABSENT: distended, guarding, mass, organolmegaly, rebound, tenderness Rectal exam: PRESENT: deferred Extremities exam: PRESENT: full ROM. ABSENT: calf tenderness, clubbing, pedal edema Musculoskeletal exam: PRESENT: ambulatory Neurological exam: PRESENT: alert, awake, oriented to person, oriented to place , oriented to time, oriented to situation, CN II-XII grossly intact. ABSENT: motor sensory deficit Psychiatric exam: PRESENT: appropriate affect, normal mood. ABSENT: homicidal ideation, suicidal ideation Skin exam: PRESENT: dry, intact, warm. ABSENT: cyanosis, rash Results Laboratory Results: 03/23/17 03:59 03/23/17 03:59 03/23/17 03/23/17 03:59 03:59 WBC 11.7 H RBC 4.29 Hgb 13.4 Hct 38.9 MCV 91 MCH 31.1 MCHC 34.4 RDW 13.2 Plt Count 290 Seg Neutrophils % Not Reportable Lymphocytes % Not Reportable Monocytes % Not Reportable Eosinophils % Not Reportable Basophils % Not Reportable Absolute Neutrophils Not Reportable Absolute Lymphocytes Not Reportable Absolute Monocytes Not Reportable Absolute Eosinophils Not Reportable Absolute Basophils Not Reportable Sodium 140.1 Potassium 4.7 Chloride 101 Carbon Dioxide 22 Anion Gap 17 BUN 15 Creatinine 0.74 Est GFR ( Amer) > 60 Est GFR (Non-Af Amer) > 60 Glucose 417 H* Calcium 9.3 Impressions: Chest X-Ray 03/22/17 17:16 IMPRESSION: REACTIVE AIRWAY DISEASE VERSUS VIRAL SYNDROME. NO CONSOLIDATION. Assessment & Plan - Diagnosis (1) Acute respiratory failure with hypoxia Is this a current diagnosis for this admission?: Yes Plan: The patient is continuing to require oxygen. She really does not seem to be wheezing. Her lungs sound fairly clear but she remains hypoxic. I am going to get a CT angiography to rule out underlying pulmonary embolus or pneumonia. Patient also has a long-standing history of smoking and we need to rule out any sort of mass lesion. She will continue oxygen support as needed. We will continue aggressive breathing treatments. (2) COPD exacerbation Is this a current diagnosis for this admission?: Yes Plan: It was felt that she was having a COPD exacerbation at the time of admission. I am going to place her on 40 mg of p.o. prednisone today. We can continue to taper rather quickly. She is not wheezing today. (3) Bronchitis Plan: I am going to get a CT scan of the chest to rule out any sort of underlying pneumonia. For now she will continue IV Levaquin. This is day #1 of treatment. (4) Obesity (BMI 35.0-39.9 without comorbidity) Plan: Previously documented his morbid obesity. The patient does not quite meet that diagnosis. Certainly her obesity is affecting her respiratory status. Dietary discretion is advised. (5) Diabetes Is this a current diagnosis for this admission?: Yes Plan: The patient has insulin requiring type 2 diabetes mellitus. She will continue Levemir 21 units twice daily along with sliding scale Humalog. She has severe hyperglycemia likely due to IV Solu-Medrol given in the emergency department. We may need to adjust her insulin regimen going forward. She is not going to receive any further IV Solu-Medrol. We will quickly taper her prednisone as she is not wheezing today. I will obtain a hemoglobin A1c to see what her overall blood sugar control is. - Time Time Spent with patient: 15-24 minutes - Inpatient Certification Medical Necessity: Need for IV Antibiotics - The patient's status will be changed from observation to a full admission. The patient has acute respiratory failure and she was not oxygen dependent prior to this hospitalization. She needs to be weaned off of oxygen. She is requiring parenteral antibiotics. She needs to have pulmonary embolism or underlying pneumonia ruled out. I believe she is going to require further treatment as an inpatient in the hospital. Her hospitalization will span greater than 2 midnights. Timing of disposition will be determined by her clinical course.
[2017-03-23] MEDS ORDERED: PREDNISONE 20 MG TABLET PO ONE (12:30)
--- NOTE | 2017-03-23 15:51 | RADIOLOGY REPORT (SQ) ---
EXAM DESCRIPTION: CTA CHEST COMPLETED DATE/TIME: 03/23/2017 3:33 pm REASON FOR STUDY: hypoxia, sob COMPARISON: None. TECHNIQUE: CT scan of the chest performed using helical scanning technique with dynamic intravenous contrast injection. Images reviewed with lung, soft tissue and bone windows. Reconstructed coronal and sagittal MPR images reviewed. Additional 3 dimensional post-processing performed to develop Maximal Intensity Projection images (SC P). All images stored on PACS. All CT scanners at this facility use dose modulation, iterative reconstruction, and/or weight based d osing when appropriate to reduce radiation dose to as low as reasonably achievable (ALARA). [facility]: Dose Right [facility]: CareDose [facility]: Dose Right [facility]: Teradose 4D [facility]: Inte[employer] IP Services CONTRAST TYPE AND DOSE: contrast/concentration: Isovue mg/ml; Total Contrast Delivered: 0.0 ml; Tot al Saline Delivered: 50.0 ml Contrast bolus optimized for the pulmonary arteries. Not diagnostic for the aorta. RENAL FUNCTION: GFR > 60. RADIATION DOSE: Up-to-date CT equipment and radiation dose reduction techniques were employed. CTDIv ol: 23.2 - 28.0 mGy. DLP: 890 mGy-cm. . LIMITATIONS: Patient motion. Timing of contrast bolus. FINDINGS: LUNGS AND PLEURA: Subsegmental airspace disease in the apical segment of both upper lobes and the lingula. No effusions. AORTA AND GREAT VESSELS: No aneurysm. Contrast bolus not optimized for the aorta. HEART: No pericardial effusion. Mild cardiomegaly. PULMONARY ARTERIES: No emboli visualized in the main pulmonary arteries or the segmental branches. HILAR AND MEDIASTINAL STRUCTURES: No identified masses or abnormal nodes. HARDWARE: None in the chest. UPPER ABDOMEN: No significant findings. Limited exam. THYROID AND OTHER SOFT TISSUES: No masses. No adenopathy. BONES: No acute or significant finding. 3D MIPS: Confirm above findings. OTHER: No other significant finding. IMPRESSION: 1. No PE. 2. Bilateral upper lobe pneumonia. COMMENT: Quality ID # [id number]: Final reports with documentation of one or more dose reduction techniques (e.g., Automated exposure control, adjustment of the mA and/or kV according to patient size, use of iterative reconstruction technique) TECHNICAL DOCUMENTATION: JOB ID: [id number] [employer]- All Rights Reserved
[2017-03-23] MEDS: INSULIN DETEMIR 100 UNIT/ML 3 ML PEN SUBCUT SCH (18:10)
[2017-03-23] MEDS ORDERED: IBUPROFEN 600 MG TABLET PO PRN ×2 (20:23→20:49)
[2017-03-23] MEDS: LEVOFLOXACIN 750 MG/D5W RTU 750 MG/150 ML RTUPB IV SCH (21:57)
[2017-03-24] MEDS: IPRATROPIUM/ALBUTEROL 0.5-2.5 MG/3 ML AMPUL NEB SCH ×3 (01:28→14:14)
[2017-03-24] MEDS: LANSOPRAZOLE 30 MG TAB.RAP.DR PO SCH (06:22)
[2017-03-24] MEDS: HEPARIN SOD (PORCINE) 5,000 UNIT/ML 1 ML SYRINGE SUBCUT SCH ×2 (06:22→13:09)
[2017-03-24] MEDS: INSULIN DETEMIR 100 UNIT/ML 3 ML PEN SUBCUT SCH (06:23)
[2017-03-24] MEDS: INSULIN LISPRO 100 UNIT/ML 3 ML VIAL SUBCUT PRN ×2 (08:15→12:03)
[2017-03-24] MEDS: GUAIFENESIN 600 MG TABLET.SA PO SCH (09:44)
[2017-03-24] MEDS: FLUTICASONE NASAL SPRAY 50 MCG/SPRY 120 SPRAY/16 GM NASL SCH (09:45)
[2017-03-24] MEDS ORDERED: PREDNISONE 20 MG TABLET PO SCH (10:00)
[2017-03-24 13:53] VITALS: BP 111/64
--- NOTE | 2017-03-24 16:17 | PDOC DISCHARGE SUMMARY ---
General - Admit/Disc Date/PCP Admission Date/Primary Care Provider: 03/23/17 12:09 [facility] Discharge Date: 03/24/17 - Discharge Diagnosis (1) Acute respiratory failure with hypoxia Is this a current diagnosis for this admission?: Yes Summary: Patient presented to the emergency department with a four-day history of progressively worsening shortness of breath. She was found to be hypoxic with initial oxygen saturations in the mid 80s on room air. She was placed on BiPAP which she continued overnight. A CTA was ordered to rule out underlying pulmonary embolus or pneumonia; there was no evidence of PE, however, it did revel a bilateral upper lobe pneumonia. Blood cultures remain negative at 24 hours. She has been successfully weaned to room air and is now maintaining oxygen saturations well ambulatory and is conversational without dyspnea. 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 She states that there is no possibility for her to remain in the hospital today. Risk of early discharge to include worsening respiratory status, readmission, sepsis, and even were discussed. Patient states that she is aware of and acknowledges these risks but continues to desire discharge home. At this time she is stable and will not qualify for home oxygen. She does have access to a home nebulizer. She will be discharged on levaquin, prednisone and Duonebs with recommendations to follow up with the [facility] within 1 week to establish care. (2) Bronchitis Is this a current diagnosis for this admission?: Yes Summary: As above. (3) COPD exacerbation Is this a current diagnosis for this admission?: Yes Summary: As above. (4) Diabetes Is this a current diagnosis for this admission?: Yes Summary: The patient has insulin requiring type 2 diabetes mellitus. Her home regimen of Levemir 21 units twice daily with sliding scale Humalog discontinued. She was noted to have severe hyperglycemia 2/2 to IV Solu-Medrol which improved with transition to p.o. prednisone. She does remain hyperglycemic in the mid- 200s, however, I expect this to improve with completion of steroid course. She was encouraged to watch her diet closely and follow-up with the [facility] to establish care; she has an appointment scheduled for March 27 at 1 PM. - Additional Information Resuscitation Status: Full Code Discharge Diet: Diabetic Discharge Activity: Activity As Tolerated Home Medications: RX: Metformin HCl [Glucophage] 1,000 mg PO BIDACBS #60 tablet 10/09/13 RX: Insulin Detemir [Levemir Insulin 100 units/mL] 21 units SUBCUT BID 03/22/17 Ipratropium/Albuterol Sulfate [Duoneb 3 ml Ampul] 3 ml NEB [id number] PRN #60 vial.neb 03/24/17 Levofloxacin [Levaquin 750 mg Tablet] 750 mg PO DAILY #7 tab 03/24/17 RX: Fluticasone Propionate [Flonase Nasal [place] 50 Mcg/[place] 16 gm] 2 spray NASL Q12 spray.pump 03/24/17 RX: Guaifenesin [Mucinex Sr 600 mg Tablet.sa] 600 mg PO Q12 #30 tablet.sa RX: Ibuprofen [Motrin 600 mg Tablet] 600 mg PO Q6HP PRN tablet 03/24/17 RX: Insulin Lispro [Humalog Insulin (Lispro) 100 unit/mL] 0 - 12 unit SUBCUT ACP PRN unit 03/24/17 RX: Prednisone [Deltasone 20 mg Tablet] 40 mg PO DAILY 5 Days tablet 03/24/17 History of Present Illness History of Present Illness: Per H&P by Dr. More: LESTER FREDERICK is a 42 year old female with a past medical history of diabetes, chronic bronchitis tobacco dependence, COPD and morbid obesity. Patient and her usual state of health until approximately 4 days ago noting shortness of breath and a nonproductive cough symptoms have progressively worsened she denies runny nose sore throat or fever. In the emergency room she has oxygen saturations in the mid 80s on room air she is placed on oxygen and BiPAP, received empiric antibiotics refer to the hospitalist for admission. Patient denies exposure to inhalation of smoke, allergen or volatile chemical. Patient is speaking in full sentences but provides poor effort during exam. She denies chest pain, nausea vomiting or diaphoresis. Physical Exam Vital Signs: Temp Pulse Resp BP Pulse Ox 98.5 F 83 16 111/64 99 03/24/17 13:50 03/24/17 14:14 03/24/17 14:14 03/24/17 13:50 03/24/17 13:50 Intake & Output 03/23/17 03/24/1703/25/17 06:59 06:59 06:59 Intake Total 1775 Balance 1775 General appearance: PRESENT: no acute distress, well-developed, well-nourished, other - overweight Head exam: PRESENT: atraumatic, normocephalic Eye exam: PRESENT: conjunctiva pink, EOMI, PERRLA. ABSENT: scleral icterus Ear exam: PRESENT: normal external ear exam Mouth exam: PRESENT: moist, tongue midline Neck exam: ABSENT: carotid bruit, JVD, lymphadenopathy, thyromegaly Respiratory exam: PRESENT: clear to auscultation annabella, decreased breath sounds - throughout; poor inspiratory effort, symmetrical, unlabored. ABSENT: rales, rhonchi, tachypnea, wheezes Cardiovascular exam: PRESENT: RRR, +S1, +S2. ABSENT: diastolic murmur, rubs, systolic murmur, tachycardia Pulses: PRESENT: normal dorsalis pedis pul Vascular exam: PRESENT: normal capillary refill GI/Abdominal exam: PRESENT: normal bowel sounds, soft. ABSENT: distended, guarding, mass, organolmegaly, rebound, tenderness Rectal exam: PRESENT: deferred Extremities exam: PRESENT: full ROM. ABSENT: calf tenderness, clubbing, pedal edema Neurological exam: PRESENT: alert, awake, oriented to person, oriented to place , oriented to time, oriented to situation, CN II-XII grossly intact. ABSENT: motor sensory deficit Psychiatric exam: PRESENT: appropriate affect, normal mood. ABSENT: homicidal ideation, suicidal ideation Skin exam: PRESENT: dry, intact, warm. ABSENT: cyanosis, rash Results Impressions: Chest X-Ray 03/22/17 17:16 IMPRESSION: REACTIVE AIRWAY DISEASE VERSUS VIRAL SYNDROME. NO CONSOLIDATION. Chest/Abdomen CTA 03/23/17 00:00 IMPRESSION: 1. No PE. 2. Bilateral upper lobe pneumonia. Qualifiers PATEINT BEING DISCHARGED WITH ANY OF THE FOLLOWING DIAGNOSIS?: No
== END 2017-03-24 15:59 | disposition home or self-care (01) | DRG 193 ==
LOC: ER 17:09 → EH 20:03 → UNDOADMOB 20:22 → 4N 22:41 → OBSVTOIN 03-23 12:09
PROVIDERS: ADMIT Internal Medicine; ATTEND Internal Medicine
PROC: 5A09457 Assistance with Respiratory Ventilation, 24-96 Consecutive Hours, Continuous Positive Airway Pressure (ICD-10-PCS; principal; 2017-03-23)
PROC: 3E0F73Z Introduction of Anti-inflammatory into Respiratory Tract, Via Natural or Artificial Opening (ICD-10-PCS; 2017-03-23)
DX: J18.9 Pneumonia, unspecified organism (principal); J96.01 Acute respiratory failure with hypoxia; J44.1 Chronic obstructive pulmonary disease with (acute) exacerbation; J44.0 Chronic obstructive pulmonary disease with (acute) lower respiratory infection; E11.9 Type 2 diabetes mellitus without complications; F17.210 Nicotine dependence, cigarettes, uncomplicated; G43.909 Migraine, unspecified, not intractable, without status migrainosus; E66.01 Morbid (severe) obesity due to excess calories; Z68.39 Body mass index [BMI] 39.0-39.9, adult; Z88.0 Allergy status to penicillin; Z83.3 Family history of diabetes mellitus; Z82.49 Family history of ischemic heart disease and other diseases of the circulatory system
CPT/HCPCS: 36415; 71010; 71275; 80048; 80053; 81001; 81025; 82550; 82553; 82962; 83880; 84484; 85025; 87040; 87804; 93005; 93010; 94640; 94660; 94799; 96374; 96375; 99285; G0378; J1644; J1815; J1885; J1956; J2930; J3490; J7512; J7620

== ENCOUNTER → 2017-03-27 | Outpatient (CLI) | payer OTHER | LOC: CCC 15:16 | DX: J18.9 Pneumonia, unspecified organism (principal) ==

== ENCOUNTER → 2017-03-28 | Outpatient (CLI) | payer OTHER | LOC: CCC 08:55 | DX: J18.9 Pneumonia, unspecified organism (principal) | CPT/HCPCS: 87205 ==

== ENCOUNTER 2017-08-14 19:19 | Emergency (ER) | payer SELFPAY ==
[2017-08-14 19:31] VITALS: BP 142/80
--- NOTE | 2017-08-14 20:02 | ER Document Report ---
HPI - HPI Patient complains to provider of: Right shoulder neck pain Pain Level: 3 Context: Patient is a 42-year-old female who is right-hand dominant presents with shoulder and neck pain. she states that this is been a constant pain but got worse over the past 4 days. She feels like she slept on it wrong. His been taking 800 mg Motrins at home. Denies any heat or ice. She still been utilizing her arm and not resting it is been heavy lifting throughout the house. She denies any recent trauma, fall, fevers or chills. Patient is a current smoker and diabetic - REPRODUCTIVE Reproductive: DENIES: : Past Medical History - Social History Smoking Status: Current Every Day Smoker Family History: DM, Hypertension Pulmonary Medical History: Reports: Hx Bronchitis, Hx COPD Denies: Hx Asthma Neurological Medical History: Reports: Hx Migraine Endocrine Medical History: Reports: Hx Diabetes Mellitus Type 2 Renal/ Medical History: Denies: Hx Peritoneal Dialysis GI Medical History: Reports: Hx Gastritis Musculoskeltal Medical History: Reports Hx Musculoskeletal Trauma Psychiatric Medical History: Denies: Hx Depression Traumatic Medical History: Reports: Hx Fractures Past Surgical History: Reports: Hx Oral Surgery - wisdom, Hx Orthopedic Surgery - Right foot, Hx Tonsillectomy, Hx Tubal Ligation - Immunizations Immunizations up to date: Yes Hx Diphtheria, Pertussis, Tetanus Vaccination: Yes Hx Pneumococcal Vaccination: 02/09/14 Vertical Provider Document - CONSTITUTIONAL Agree With Documented VS: Yes Notes: PHYSICAL EXAM GENERAL: Alert, interacts well. EXTREMITIES: Moves all 4 extremities spontaneously. Full range of motion of the right shoulder without any inhibitions and range of motion. No palpable or visible deformities no edema, radial and dorsalis pedis pulses 2/4 bilaterally. No cyanosis. NEUROLOGICAL: Alert and oriented x4. Normal speech. PSYCH: Normal affect, normal mood. SKIN: Warm, dry, normal turgor. No rashes or lesions noted. - INFECTION CONTROL TRAVEL OUTSIDE OF THE [place] IN LAST 30 DAYS: No Course - Re-evaluation Re-evalutation: 08/14/17 21:04 Patient is a 42-year-old female hemodynamic stable, no acute distress and afebrile. Presentation is not concerning for any evidence of adhesive capsulitis or frozen shoulder given patient's gender and past medical history. No evidence of a septic joint, gout flare, dislocation, or fracture on exam and imaging. Vitals wnl. Symptoms did improve after topical heat was applied. At this time, I do not see an indication for labs or further imaging. Will discharge with conservative measures, return precautions, and follow-up recommendations. - Vital Signs Vital signs: Temp Pulse Resp BP Pulse Ox 98.3 F 91 16 142/80 H 97 08/14/17 19:28 08/14/17 19:28 08/14/17 19:28 08/14/17 19:28 08/14/17 19:28 - Diagnostic Test Radiology reviewed: Image reviewed, Reports reviewed Discharge - Discharge Clinical Impression: Right shoulder pain Qualifiers: Chronicity: acute Qualified Code(s): M25.511 - Pain in right shoulder Condition: Good Disposition: HOME, SELF-CARE Instructions: Muscle Strain ([facility]), Exercise Program for the Shoulder ([facility]), Use of [id number] Ibuprofen ([facility]), Acetaminophen, Warm Packs ([facility]) Additional Instructions: You can alternate between 800 mg of Motrin and extra strength Tylenol every 2 hours for pain relief. Prescriptions: Cyclobenzaprine HCl [Flexeril 10 mg Tablet] 10 mg PO TIDP PRN #15 tab PRN Reason: [facility]errals: [facility] [NO LOCAL MD] - Follow up as needed
--- NOTE | 2017-08-14 20:48 | RADIOLOGY REPORT (SQ) ---
EXAM DESCRIPTION: SHOULDER RIGHT 2 OR MORE VIEWS COMPLETED DATE/TIME: 08/14/2017 8:17 pm REASON FOR STUDY: right shoulder pain COMPARISON: None. NUMBER OF VIEWS: Three views. TECHNIQUE: Internal rotation, external rotation, and Y view images acquired of the right shoulder. LIMITATIONS: None. FINDINGS: MINERALIZATION: Normal. BONES: No acute fracture or dislocation. No worrisome bone lesions. JOINTS: No dislocation. VISUALIZED LUNGS AND RIBS: No pneumothorax. No rib fracture. SOFT TISSUES: No radiopaque foreign body. OTHER: No other significant finding. IMPRESSION: NO RADIOGRAPHIC EVIDENCE OF ACUTE INJURY. TECHNICAL DOCUMENTATION: JOB ID: [id number] 2010 [employer]- All Rights Reserved Reading location - IP/workstation name: [email or web address]
[2017-08-14] MEDS ORDERED: KETOROLAC TROMETHAMINE INJ/PF 30 MG/1 ML SDV IM ONE (21:05)
== END 2017-08-14 21:22 | disposition home or self-care (01) ==
LOC: ER 19:19
DX: M25.511 Pain in right shoulder (principal); M54.2 Cervicalgia; J44.9 Chronic obstructive pulmonary disease, unspecified; E11.9 Type 2 diabetes mellitus without complications; F17.200 Nicotine dependence, unspecified, uncomplicated
CPT/HCPCS: 99283; 96372; 73030; J1885

== ENCOUNTER 2017-09-06 01:51 | Emergency (ER) | payer SELFPAY ==
--- NOTE | 2017-09-06 03:00 | ER Document Report ---
HPI - HPI Patient complains to provider of: sinus pain, ear pain Pain Level: 4 Context: Patient is a 42-year-old female comes emergency department for chief complaint of sinus pain, congestion, and bilateral ear pain. She denies cough, fever, neck pain. She denies shortness of breath, chest pain. She states that she has been sneezing and having worsening congestion for a while and over the past couple of days it has become much worse along with sinus pain. She states she thinks she had chills earlier today. Past medical history of diabetes, insulin- dependent, denies any other medical history other than smoking. He denies asthma or COPD history. - CONSTITUTIONAL Constitutional: DENIES: Fever, Chills - EENT EENT: REPORTS: Ear Pain - bilat - NEURO Neurology: REPORTS: Headache - REPRODUCTIVE Reproductive: DENIES: : Past Medical History - General Information source: Patient - Social History Smoking Status: Current Every Day Smoker Smoking Education Provided: Yes - <3 min Frequency of alcohol use: None Drug Abuse: None Lives with: Family Family History: DM, Hypertension Patient has suicidal ideation: No Patient has homicidal ideation: No Pulmonary Medical History: Reports: Hx Bronchitis, Hx COPD Denies: Hx Asthma Neurological Medical History: Reports: Hx Migraine Endocrine Medical History: Reports: Hx Diabetes Mellitus Type 2 Renal/ Medical History: Denies: Hx Peritoneal Dialysis GI Medical History: Reports: Hx Gastritis Musculoskeltal Medical History: Reports Hx Musculoskeletal Trauma Psychiatric Medical History: Denies: Hx Depression Traumatic Medical History: Reports: Hx Fractures Past Surgical History: Reports: Hx Oral Surgery - wisdom, Hx Orthopedic Surgery - Right foot, Hx Tonsillectomy, Hx Tubal Ligation - Immunizations Immunizations up to date: Yes Hx Diphtheria, Pertussis, Tetanus Vaccination: Yes Hx Pneumococcal Vaccination: 02/09/14 Vertical Provider Document - CONSTITUTIONAL General Appearance: WD/WN, No Apparent Distress - INFECTION CONTROL TRAVEL OUTSIDE OF THE [place] IN LAST 30 DAYS: No - HEENT HEENT: Atraumatic, Normocephalic. negative: Normal ENT Exam - Patient very tender over both maxillary sinuses, has some nasal congestion, mild tenderness over frontal sinuses, ear effusions bilaterally, normal mastoids and ear exam otherwise, unremarkable pharyngeal exam and neck exam - NECK Neck: Normal Inspection - RESPIRATORY Respiratory: Breath Sounds Normal, No Respiratory Distress - CARDIOVASCULAR Cardiovascular: Regular Rate, Regular Rhythm - GI/ABDOMEN Gastrointestinal: Abdomen Soft, Abdomen Non-Tender - BACK Back: Normal Inspection - NEURO Level of Consciousness: Awake, Alert, Appropriate - DERM Integumentary: Warm, Dry, No Rash Course - Re-evaluation Re-evalutation: Patient is very noticeable very tender sinuses especially over the maxillary sinuses. Clear lungs, normal neck and throat exam, unremarkable abdomen, no nuchal rigidity, patient well-appearing otherwise. No fever. Unremarkable vital signs. Ears appear to have effusion but no infection. Discussed with patient. Patient will have her accommodation for allergy medication as this appears to have precipitated her symptoms initially, patient will be placed on antibiotics because of her significant sinus pain, symptom management, primary care follow-up, and discussed return precautions in detail. Patient is allergic to penicillins and will therefore not be placed on amoxicillin or Augmentin. Patient states satisfaction and agreement with plan. - Vital Signs Vital signs: Temp Pulse Resp BP Pulse Ox 97.9 F 86 16 139/96 H 96 09/06/17 01:56 09/06/17 01:56 09/06/17 01:56 09/06/17 01:56 09/06/17 01:56 Discharge - Discharge Clinical Impression: Sinusitis Qualifiers: Sinusitis location: unspecified location Chronicity: acute Recurrence: non- recurrent Qualified Code(s): J01.90 - Acute sinusitis, unspecified Ear pain Qualifiers: Laterality: bilateral Qualified Code(s): H92.03 - Otalgia, bilateral Condition: Stable Disposition: HOME, SELF-CARE Additional Instructions: Your examination is consistent with a sinus infection and blocked eustachian tubes causing ear pain. Take doxycycline antibiotic due to sinus infection, take the Sudafed and Flonase as prescribed for congestion, I recommend antiallergy such as Zyrtec or Mariana daily as well. Stop smoking. Follow-up with primary care. Return if you worsen including difficulty breathing, fever, or any other concerning or worsening symptoms. Prescriptions: Doxycycline Hyclate 100 mg PO BID #14 capsule Fluticasone Propionate [Flonase Nasal Delano 50 Mcg/Delano 16 gm] 1 spray NASL Q12 #1 inhaler Pseudoephedrine HCl [Sudafed 12 Hour] 120 mg PO Q12H PRN #14 tablet.er PRN Reason: Forms: Return to Work
[2017-09-06 03:19] VITALS: BP 131/84
== END 2017-09-06 03:18 | disposition home or self-care (01) ==
LOC: ER 01:51
DX: J01.90 Acute sinusitis, unspecified (principal); H92.03 Otalgia, bilateral; R06.7 Sneezing; R51 Headache; E11.9 Type 2 diabetes mellitus without complications; Z79.4 Long term (current) use of insulin; F17.200 Nicotine dependence, unspecified, uncomplicated
CPT/HCPCS: 99282

== ENCOUNTER 2017-10-07 01:11 | Emergency (ER) | payer SELFPAY ==
[2017-10-07] MEDS ORDERED: ACETAMINOPHEN 325 MG TABLET PO ONE (03:22)
[2017-10-07] MEDS ORDERED: DEXAMETHASONE 4 MG TABLET PO ONE (03:22)
[2017-10-07] MEDS ORDERED: OXYMETAZOLINE HCL 0.05% NASAL SPRAY 15 ML BOTTLE NASL PRN (03:22)
--- NOTE | 2017-10-07 03:25 | ER Document Report ---
ED General - General Chief Complaint: Sore Throat Stated Complaint: SORE THROAT Time Seen by Provider: 10/07/17 02:20 Notes: Patient is a 42-year-old female with past medical history of non-insulin- dependent type 2 diabetes and morbid obesity who presents with 2 days of nasal congestion, sore throat and fatigue. Patient states that her sinus congestion associated that prevents her from being able to sleep at night. This is why she came to the emergency department tonight. She has tried Sudafed for relief of her symptoms without success. He seems to worsen her symptoms. She denies fever or constitutional symptoms. Multiple sick contacts. She has not seen her general doctor regarding today's concerns. She denies cough or sputum production. No headache, weakness or numbness. TRAVEL OUTSIDE OF THE [place] IN LAST 30 DAYS: No - Related Data Allergies/Adverse Reactions: Penicillins Allergy (Verified 03/22/17 17:10) Past Medical History - General Information source: Patient - Social History Smoking Status: Never Smoker Frequency of alcohol use: None Drug Abuse: None Lives with: Family Family History: DM, Hypertension Pulmonary Medical History: Reports: Hx Bronchitis, Hx COPD Denies: Hx Asthma Neurological Medical History: Reports: Hx Migraine Endocrine Medical History: Reports: Hx Diabetes Mellitus Type 2 Renal/ Medical History: Denies: Hx Peritoneal Dialysis GI Medical History: Reports: Hx Gastritis Musculoskeltal Medical History: Reports Hx Musculoskeletal Trauma Psychiatric Medical History: Denies: Hx Depression Traumatic Medical History: Reports: Hx Fractures Past Surgical History: Reports: Hx Oral Surgery - wisdom, Hx Orthopedic Surgery - Right foot, Hx Tonsillectomy, Hx Tubal Ligation - Immunizations Immunizations up to date: Yes Hx Diphtheria, Pertussis, Tetanus Vaccination: Yes Hx Pneumococcal Vaccination: 02/09/14 Review of Systems - Review of Systems Notes: Constitutional: Negative for fever. HENT: Positive for sore throat. Eyes: Negative for visual changes. Cardiovascular: Negative for chest pain. Respiratory: Negative for shortness of breath. Gastrointestinal: Negative for abdominal pain, vomiting or diarrhea. Genitourinary: Negative for dysuria. Musculoskeletal: Negative for back pain. Skin: Negative for rash. Neurological: Negative for headaches, weakness or numbness. 10 point ROS negative except as marked above and in HPI. Physical Exam - Vital signs Vitals: Temp Pulse Resp BP Pulse Ox 98.8 F 91 18 147/92 H 96 10/07/17 01:35 10/07/17 01:35 10/07/17 01:35 10/07/17 01:35 10/07/17 01:35 Interpretation: Hypertensive Notes: PHYSICAL EXAMINATION: GENERAL: Well-appearing, well-nourished and in no acute distress. HEAD: Atraumatic, normocephalic. EYES: Pupils equal round and reactive to light, extraocular movements intact, sclera anicteric, conjunctiva are normal. ENT: nares patent, oropharynx clear without exudates. Moist mucous membranes. Nasal congestion is present. NECK: Normal range of motion, bilateral anterior cervical lymphadenopathy that is tender to palpation. LUNGS: Breath sounds clear to auscultation bilaterally and equal. No wheezes rales or rhonchi. HEART: Regular rate and rhythm without murmurs ABDOMEN: Soft, nontender, normoactive bowel sounds. No guarding, no rebound. No masses appreciated. EXTREMITIES: Normal range of motion, no pitting or edema. No cyanosis. NEUROLOGICAL: No focal neurological deficits. Moves all extremities spontaneously and on command. PSYCH: Normal mood, normal affect. SKIN: Warm, Dry, normal turgor, no rashes or lesions noted. Course - Re-evaluation Re-evalutation: 10/07/17 03:22 Presentation is most consistent with a viral upper respiratory infection. Patient is overall well appearance, vitals within normal limits, well-hydrated. Patient denies any headache, neck pain, and has no evidence of meningismus on examination. Lungs are clear bilaterally. No evidence of respiratory distress. Based on clinical exam and history, I do not suspect an acute pneumonia, meningitis, strep pharyngitis, or an acute encephalitis. No laboratory or imaging testing is indicated at this time. At this time will discharge with return precautions and follow-up recommendations. Verbal discharge instructions given a the bedside and opportunity for questions given. Medication warnings reviewed. Patient is in agreement with this plan and has verbalized understanding of return precautions and the need for primary care follow-up in the next 24-72 hours. - Vital Signs Vital signs: Temp Pulse Resp BP Pulse Ox 98.8 F 91 18 147/92 H 96 10/07/17 01:35 10/07/17 01:35 10/07/17 01:35 10/07/17 01:35 10/07/17 01:35 Discharge - Discharge Clinical Impression: Viral upper respiratory infection, Sinus congestion Condition: Good Disposition: HOME, SELF-CARE Additional Instructions: Your symptoms are most likely due to a viral infection it should resolve over the next 7-14 days. You should take [id number] guanfacine per bottle instructions to help thin the mucus. For nasal congestion: I would recommend that you get [id number]-[id number] oxymetazoline also known is afrin. Use only per bottle instructions and be sure to never use this for more than 3 days if you can develop severe rebound congestion. You may also use tylenol or ibuprofen as needed for aches and thorat discomfort. Please be sure to drink plenty of fluids and get rest. Return to the emergency department he began having difficulty breathing, chest pain, persistent vomiting, or any other symptoms that are concerning to you.
[2017-10-07 03:49] VITALS: BP 141/97
== END 2017-10-07 03:50 | disposition home or self-care (01) ==
LOC: ER 01:11
DX: J06.9 Acute upper respiratory infection, unspecified (principal); B97.89 Other viral agents as the cause of diseases classified elsewhere; J02.9 Acute pharyngitis, unspecified; R09.81 Nasal congestion; R53.83 Other fatigue; E11.9 Type 2 diabetes mellitus without complications; Z79.4 Long term (current) use of insulin; Z88.0 Allergy status to penicillin
CPT/HCPCS: 99282; J3490

== ENCOUNTER 2017-10-26 19:58 | Emergency (ER) | payer SELFPAY ==
--- NOTE | 2017-10-26 21:20 | ER Document Report ---
ED General - General Chief Complaint: Rash Stated Complaint: RASH Time Seen by Provider: 10/26/17 21:14 Mode of Arrival: Ambulatory Information source: Patient Notes: 42-year-old female with a history of diabetes who presents to the emergency room with itchy rash to the lower extremities. Patient states she was out gardening she noted the rash shortly after. She does not remember any bites. She denies any fever, chills, nausea vomiting. She has tried cortisone cream, Benadryl and states that the Benadryl did nothing for the itch but made her sleepy. She states the cream did nothing as well. TRAVEL OUTSIDE OF THE [place] IN LAST 30 DAYS: No - HPI Onset: Yesterday Onset/Duration: Gradual Quality of pain: No pain Severity: None Pain Level: Denies Associated symptoms: denies: Chest pain, Fever, Shortness of breath Exacerbated by: Denies Relieved by: Denies Similar symptoms previously: No Recently seen / treated by doctor: No - Related Data Allergies/Adverse Reactions: Penicillins Allergy (Verified 03/22/17 17:10) Past Medical History - General Information source: Patient - Social History Smoking Status: Current Every Day Smoker Cigarette use (# per day): Yes - Half pack per day Chew tobacco use (# tins/day): No Smoking Education Provided: No Frequency of alcohol use: None Drug Abuse: None Lives with: Alone Family History: DM, Hypertension Pulmonary Medical History: Reports: Hx Bronchitis, Hx COPD Denies: Hx Asthma Neurological Medical History: Reports: Hx Migraine Endocrine Medical History: Reports: Hx Diabetes Mellitus Type 2 Renal/ Medical History: Denies: Hx Peritoneal Dialysis GI Medical History: Reports: Hx Gastritis Musculoskeltal Medical History: Reports Hx Musculoskeletal Trauma Psychiatric Medical History: Denies: Hx Depression Traumatic Medical History: Reports: Hx Fractures Past Surgical History: Reports: Hx Oral Surgery - wisdom, Hx Orthopedic Surgery - Right foot, Hx Tonsillectomy, Hx Tubal Ligation - Immunizations Immunizations up to date: Yes Hx Diphtheria, Pertussis, Tetanus Vaccination: Yes Hx Pneumococcal Vaccination: 02/09/14 Review of Systems - Review of Systems Constitutional: denies: Chills, Fever EENT: No symptoms reported Cardiovascular: No symptoms reported Respiratory: No symptoms reported Gastrointestinal: No symptoms reported Genitourinary: No symptoms reported Female Genitourinary: No symptoms reported Musculoskeletal: No symptoms reported Skin: See HPI Hematologic/Lymphatic: No symptoms reported Neurological/Psychological: No symptoms reported Physical Exam - Vital signs Vitals: Temp Pulse Resp BP Pulse Ox 98.3 F 102 H 20 146/88 H 96 10/26/17 20:04 10/26/17 20:04 10/26/17 20:04 10/26/17 20:04 10/26/17 20:04 Notes: Physical exam: GENERAL: 32-year-old female, alert and oriented 3, nontoxic appearing. HEAD: Atraumatic, normocephalic. EYES: Pupils equal round and reactive to light, extraocular movements intact, sclera anicteric, conjunctiva are normal. ENT: Moist mucous membranes. NECK: Normal range of motion, supple LUNGS: Breath sounds clear to auscultation bilaterally and equal. No wheezes rales or rhonchi. HEART: Regular rate and rhythm without murmurs, rubs or gallops. PSYCH: Normal mood, normal affect. SKIN: Warm, Dry, normal turgor, Right lower extremity patient has a 3 x 4 cm non-blanching, blotchy, nonraised rash on the lateral ankle. It is nontender. Patient complains that it is very itchy. Patient also has a 1 x 1 cm round area of erythema on the right proximal calf with the appearance of a small central bite. Patient has on the right medial proximal leg below the ankle, a one by one round lesion very similar to the right proximal calf. Patient has a 1 x 1 cm round lesion on the lateral proximal leg similar to the other 2 mentioned above. Extremities are neurovascularly intact with good cap refill. Course - Vital Signs Vital signs: Temp Pulse Resp BP Pulse Ox 98.4 F 88 16 139/87 H 96 10/26/17 21:36 10/26/17 21:36 10/26/17 21:36 10/26/17 21:36 10/26/17 21:36 Discharge - Discharge Clinical Impression: Rash Condition: Stable Disposition: HOME, SELF-CARE Additional Instructions: The medicines as prescribed. Can try oatmeal baths. Can also try Aveeno Also you could try Pepcid which is sold [id number] 1 tablet twice a day for the next few days. As we discussed, the steroids could adversely affect her sugar, so you should make sure to get into see your primary care doctor. Prescriptions: Hydroxyzine HCl [Atarax 25 mg Tablet] 1 - 2 tab PO QID #14 tablet Methylprednisolone [Medrol 4 mg Dosepack 21 Tab/Pack] 4 mg PO ASDIR PRN #21 tab.ds.pk PRN Reason: Forms: Return to Work
[2017-10-26 21:41] VITALS: BP 139/87
== END 2017-10-26 21:41 | disposition home or self-care (01) ==
LOC: ER 19:58
DX: R21 Rash and other nonspecific skin eruption (principal); L29.9 Pruritus, unspecified; F17.210 Nicotine dependence, cigarettes, uncomplicated; E11.9 Type 2 diabetes mellitus without complications; Z88.0 Allergy status to penicillin; Z98.51 Tubal ligation status
CPT/HCPCS: 99282

== ENCOUNTER 2017-12-25 18:30 | Emergency (ER) | payer SELFPAY ==
[2017-12-25] MEDS ORDERED: IPRATROPIUM/ALBUTEROL 0.5-2.5 MG/3 ML AMPUL NEB ONE (18:58)
[2017-12-25] MEDS ORDERED: PREDNISONE 20 MG TABLET PO ONE (18:58)
--- NOTE | 2017-12-25 19:05 | ER Document Report ---
HPI - HPI Patient complains to provider of: cough Pain Level: 5 Context: Patient is a 42-year-old female complaining of head and chest congestion, chest tightness, coughing times 5 days. Patient has a history of diabetes and pneumonia. Patient is a smoker. Associated Symptoms: Body/muscle aches, Nonproductive cough, Headache, Hurts to breath, Sinus pain/drainage, Shortness of breath, Sore throat Exacerbated by: Supine Relieved by: Denies Similar symptoms previously: Yes Recently seen / treated by doctor: No - ROS Systems Reviewed and Negative: Yes All other systems reviewed and negative - REPRODUCTIVE Reproductive: DENIES: : Past Medical History - General Information source: Patient - Social History Smoking Status: Current Every Day Smoker Frequency of alcohol use: None Drug Abuse: None Lives with: Family Family History: DM, Hypertension Pulmonary Medical History: Reports: Hx Bronchitis, Hx COPD, Hx Pneumonia Denies: Hx Asthma Neurological Medical History: Reports: Hx Migraine Endocrine Medical History: Reports: Hx Diabetes Mellitus Type 2 Renal/ Medical History: Denies: Hx Peritoneal Dialysis GI Medical History: Reports: Hx Gastritis Musculoskeletal Medical History: Reports Hx Musculoskeletal Trauma Psychiatric Medical History: Denies: Hx Depression Traumatic Medical History: Reports: Hx Fractures Past Surgical History: Reports: Hx Oral Surgery - wisdom, Hx Orthopedic Surgery - Right foot, Hx Tonsillectomy, Hx Tubal Ligation - Immunizations Immunizations up to date: Yes Hx Diphtheria, Pertussis, Tetanus Vaccination: Yes Hx Pneumococcal Vaccination: 02/09/14 Vertical Provider Document - CONSTITUTIONAL Agree With Documented VS: Yes Exam Limitations: No Limitations - INFECTION CONTROL TRAVEL OUTSIDE OF THE [place] IN LAST 30 DAYS: No - HEENT HEENT: Atraumatic, PERRLA, Pharyngeal Erythema. negative: Pharyngeal Exudate - NECK Neck: Normal Inspection, Supple - RESPIRATORY Respiratory: No Respiratory Distress, Wheezing - bilat. negative: Rhonchi - NEURO Level of Consciousness: Awake, Alert, Appropriate - DERM Integumentary: Warm, Dry Course - Re-evaluation Re-evalutation: 12/25/17 19:05 After performing a Medical Screening Examination, I estimate there is LOW risk for ACUTE CORONARY SYNDROME, PULMONARY EMBOLI, RESPIRATORY FAILURE, SEPSIS OR MENINGITIS, thus I consider the discharge disposition reasonable. I have reevaluated this patient multiple times and no significant life threatening changes are noted. The patient and I have discussed the diagnosis and risks, and we agree with discharging home with close follow-up. We also discussed returning to the Emergency Department immediately if new or worsening symptoms occur. We have discussed the symptoms which are most concerning (e.g., changing or worsening pain, trouble swallowing or breathing, neck stiffness, fever) that necessitate immediate return. 12/25/17 19:39 Chest x-ray is negative for infiltrate. These results were discussed with the patient. Patient reevaluated after nebulizer. Wheezing has improved but not completely resolved. Patient reports feeling better and breathing easier. No signs of respiratory distress. - Vital Signs Vital signs: Temp Pulse Resp BP Pulse Ox 99.2 F 99 16 152/94 H 96 12/25/17 18:35 12/25/17 18:35 12/25/17 18:35 12/25/17 18:35 12/25/17 18:35 Discharge - Discharge Clinical Impression: Sinusitis Qualifiers: Sinusitis location: pansinusitis Chronicity: acute Recurrence: non-recurrent Qualified Code(s): J01.40 - Acute pansinusitis, unspecified Condition: Stable Disposition: HOME, SELF-CARE Instructions: Antibiotic Therapy ([facility]), Cough Suppressant & Expectorant Medications, Sinusitis ([facility]), Steroid Medication Prescriptions: Albuterol Sulfate [Proair HFA Inhalation Aerosol 8.5 gm MDI] 2 puff IH Q4H PRN # 1 mdi PRN Reason: Albuterol Sulfate [Albuterol Sulfate 2.5mg/3 mL] 2.5 mg IH Q4H PRN #1 kit PRN Reason: ASTHMA Azithromycin [Zithromax 250 mg Tablet] 250 mg PO ASDIR #6 tablet Phenylephrine HCl/Cod/Prometh [Phenergan Vc-Codeine Syrup] 1 tsp PO Q4H PRN # 200 ml PRN Reason: Prednisone [Deltasone 10 mg Tablet] 20 mg PO BID #16 tablet Forms: Return to Work
[2017-12-25 19:50] VITALS: BP 148/90
--- NOTE | 2017-12-25 19:53 | RADIOLOGY REPORT (SQ) ---
EXAM DESCRIPTION: CHEST 2 VIEWS COMPLETED DATE/TIME: 12/25/2017 7:06 pm REASON FOR STUDY: cough, h/o pneumonia COMPARISON: 03/22/2017 EXAM PARAMETERS: NUMBER OF VIEWS: two views TECHNIQUE: Digital Frontal and Lateral radiographic views of the chest acquired. RADIATION DOSE: NA LIMITATIONS: none FINDINGS: LUNGS AND PLEURA: No opacities, masses or pneumothorax. No pleural effusion. MEDIASTINUM AND HILAR STRUCTURES: No masses or contour abnormalities. HEART AND VASCULAR STRUCTURES: Heart normal size. No evidence for failure. BONES: No acute findings. HARDWARE: None in the chest. OTHER: No other significant finding. IMPRESSION: NO ACUTE RADIOGRAPHIC FINDING IN THE CHEST. TECHNICAL DOCUMENTATION: JOB ID: [id number] [employer]- All Rights Reserved Reading location - IP/workstation name: [email or web address]
== END 2017-12-25 19:49 | disposition home or self-care (01) ==
LOC: ER 18:30
DX: J01.40 Acute pansinusitis, unspecified (principal); R09.89 Other specified symptoms and signs involving the circulatory and respiratory systems; R05 Cough; F17.200 Nicotine dependence, unspecified, uncomplicated; E11.9 Type 2 diabetes mellitus without complications; Z98.51 Tubal ligation status
CPT/HCPCS: 94640; 99283; 71046; J7512; J7620

== ENCOUNTER 2017-12-29 20:23 | Emergency (ER) | payer SELFPAY ==
[2017-12-29] MEDS ORDERED: BENZONATATE 100 MG CAPSULE PO ONE (22:29)
[2017-12-29] MEDS ORDERED: IPRATROPIUM/ALBUTEROL 0.5-2.5 MG/3 ML AMPUL NEB ONE (22:29)
[2017-12-29] MEDS ORDERED: LIDOCAINE 2% INJ-PF (20 MG/ML) 10 ML AMPUL NEB ONE (22:29)
--- NOTE | 2017-12-29 23:15 | RADIOLOGY REPORT (SQ) ---
EXAM DESCRIPTION: XR CHEST 1 VIEW COMPLETED DATE/TME: 12/29/2017 22:27 CLINICAL HISTORY: cough, sob COMPARISON: 12/25/2017 FINDINGS: Single frontal view of the chest. The cardiomediastinal silhouette has normal size and contour. No consolidation, pneumothorax, or pleural effusion. No displaced rib fractures identified. Upper abdominal soft tissues are unremarkable. IMPRESSION: 1. No acute pulmonary process identified.
[2017-12-29] MEDS ORDERED: ALBUTEROL SULFATE HFA (90 MCG/PUFF) 200 PUFF/8.5 GM MDI IH ONE (23:28)
--- NOTE | 2017-12-29 23:29 | ER Document Report ---
ED General - General Chief Complaint: Congestion Stated Complaint: CONGESTION,CHEST PAIN,COUGHING Time Seen by Provider: 12/29/17 22:27 Notes: Patient is a 42-year-old female with a past medical history of asthma who presents with approximately 1 week of persistent cough. The patient was seen in the emergency department several days ago, treated with azithromycin, steroids but has had no relief. Nothing worsens her symptoms. She states the cough is constant all day long and often prevents her from sleeping. She denies any sputum production. No fever or constitutional symptoms. She has had similar symptoms in the past with viral infections. She has not yet followed up with her general doctor. She states that she is not currently smoking. She denies any shortness of breath. TRAVEL OUTSIDE OF THE [place] IN LAST 30 DAYS: No - Related Data Allergies/Adverse Reactions: Penicillins Allergy (Verified 12/25/17 18:33) Past Medical History - General Information source: Patient - Social History Smoking Status: Former Smoker Frequency of alcohol use: None Drug Abuse: None Lives with: Family Family History: DM, Hypertension Patient has suicidal ideation: No Patient has homicidal ideation: No Pulmonary Medical History: Reports: Hx Bronchitis, Hx COPD, Hx Pneumonia Denies: Hx Asthma Neurological Medical History: Reports: Hx Migraine Endocrine Medical History: Reports: Hx Diabetes Mellitus Type 2 Renal/ Medical History: Denies: Hx Peritoneal Dialysis GI Medical History: Reports: Hx Gastritis Musculoskeletal Medical History: Reports Hx Musculoskeletal Trauma Psychiatric Medical History: Denies: Hx Depression Traumatic Medical History: Reports: Hx Fractures Past Surgical History: Reports: Hx Oral Surgery - wisdom, Hx Orthopedic Surgery - Right foot, Hx Tonsillectomy, Hx Tubal Ligation - Immunizations Immunizations up to date: Yes Hx Diphtheria, Pertussis, Tetanus Vaccination: Yes Hx Pneumococcal Vaccination: 02/09/14 Review of Systems - Review of Systems Notes: Constitutional: Negative for fever. HENT: Negative for sore throat. Eyes: Negative for visual changes. Cardiovascular: Negative for chest pain. Respiratory: Positive for persistent cough Gastrointestinal: Negative for abdominal pain, vomiting or diarrhea. Genitourinary: Negative for dysuria. Musculoskeletal: Negative for back pain. Skin: Negative for rash. Neurological: Negative for headaches, weakness or numbness. 10 point ROS negative except as marked above and in HPI. Physical Exam - Vital signs Vitals: Temp Pulse Resp BP Pulse Ox 98.8 F 97 18 148/93 H 95 12/29/17 21:16 12/29/17 21:16 12/29/17 21:16 12/29/17 21:16 12/29/17 21:16 Interpretation: Hypertensive Notes: PHYSICAL EXAMINATION: GENERAL: Coughing frequently, appears somewhat uncomfortable but in no distress. HEAD: Atraumatic, normocephalic. EYES: Pupils equal round and reactive to light, extraocular movements intact, sclera anicteric, conjunctiva are normal. ENT: nares patent, oropharynx clear without exudates. Moist mucous membranes. NECK: Normal range of motion, supple without lymphadenopathy LUNGS: Breath sounds clear to auscultation bilaterally and equal. No wheezes rales or rhonchi. HEART: Regular rate and rhythm without murmurs ABDOMEN: Soft, nontender, normoactive bowel sounds. No guarding, no rebound. No masses appreciated. EXTREMITIES: Normal range of motion, no pitting or edema. No cyanosis. NEUROLOGICAL: No focal neurological deficits. Moves all extremities spontaneously and on command. PSYCH: Normal mood, normal affect. SKIN: Warm, Dry, normal turgor, no rashes or lesions noted. Course - Re-evaluation Re-evalutation: 12/29/17 23:28 Patient presents with a clinical history and exam most consistent with an acute viral bronchitis. Patient is overall well in appearance without tachypnea, hypoxemia, tachycardia, or difficulty with ambulation. Breath sounds are clear bilaterally. No fever. Patient does have additional signs of upper respiratory infection including nasal congestion, sore throat, and sinus pressure. No indication for labs or imaging. Will treat with bronchodilators and Tessalon Perles. At this time will discharge with return precautions and follow-up recommendations. Verbal discharge instructions given a the bedside and opportunity for questions given. Medication warnings reviewed. Patient is in agreement with this plan and has verbalized understanding of return precautions and the need for primary care follow-up in the next 24-72 hours. - Vital Signs Vital signs: Temp Pulse Resp BP Pulse Ox 98.6 F 108 H 12 141/90 H 97 12/30/17 00:00 12/30/17 00:00 12/30/17 00:00 12/30/17 00:00 12/30/17 00:00 - Diagnostic Test Radiology reviewed: Image reviewed, Reports reviewed Radiology results interpreted by me: 12/29/17 23:28 Chest x-ray: No acute infiltrate or pneumothorax Discharge - Discharge Clinical Impression: Bronchitis, Persistent cough Condition: Good Disposition: HOME, SELF-CARE Additional Instructions: You were seen for symptoms most consistent with bronchitis. This can take up to 12 weeks to fully resolve. This is generally due to a viral infection. Please follow-up with your primary doctor in the next 2-3 days. Return if you develop worsening cough, vomiting, fever >100.4, pass out, begin coughing blood, or have any other symptoms that are concerning to you. Please use the medications prescribed today as directed. Prescriptions: Benzonatate [Tessalon Perles 100 mg Capsule] 100 mg PO Q8HP PRN #40 capsule PRN Reason: Forms: Return to Work
[2017-12-30 00:02] VITALS: BP 141/90
== END 2017-12-30 00:03 | disposition home or self-care (01) ==
LOC: ER 20:23
DX: J40 Bronchitis, not specified as acute or chronic (principal); R09.81 Nasal congestion; J02.9 Acute pharyngitis, unspecified; R05 Cough; J44.9 Chronic obstructive pulmonary disease, unspecified; Z87.891 Personal history of nicotine dependence; Z87.01 Personal history of pneumonia (recurrent); E11.9 Type 2 diabetes mellitus without complications
CPT/HCPCS: 94640; 99283; 71045; J3490 ×2; J7620

== ENCOUNTER 2018-02-01 19:12 | Emergency (ER) | payer SELFPAY ==
[2018-02-01 19:44] VITALS: BP 145/66
[2018-02-01] MEDS ORDERED: KETOROLAC TROMETHAMINE 60 MG/2 ML SDV IM ONE (20:30)
--- NOTE | 2018-02-01 20:32 | RADIOLOGY REPORT (SQ) ---
EXAM DESCRIPTION: SHOULDER RIGHT 2 OR MORE VIEWS COMPLETED DATE/TIME: 02/01/2018 8:11 pm REASON FOR STUDY: INJURY COMPARISON: None. NUMBER OF VIEWS: Three views. TECHNIQUE: Internal rotation, external rotation, and Y view images acquired of the right shoulder. LIMITATIONS: None. FINDINGS: MINERALIZATION: Normal. BONES: No acute fracture or dislocation. No worrisome bone lesions. JOINTS: No glenohumeral dislocation. No acromioclavicular joint space widening VISUALIZED LUNGS AND RIBS: No pneumothorax. No rib fracture. SOFT TISSUES: No radiopaque foreign body. OTHER: No other significant finding. IMPRESSION: NEGATIVE STUDY OF THE RIGHT SHOULDER. NO RADIOGRAPHIC EVIDENCE OF ACUTE INJURY. TECHNICAL DOCUMENTATION: JOB ID: [id number] [employer]- All Rights Reserved Reading location - IP/workstation name: [email or web address]
--- NOTE | 2018-02-01 20:56 | ER Document Report ---
HPI - HPI Pain Level: 4 Notes: Patient presents with chief complaint of right shoulder pain. Patient reports she was walking up a set of stairs when she fell going upwards and landed on her right shoulder 4 days ago. Patient denies any other injuries. Patient denies any history of trauma to this area previously. - CONSTITUTIONAL Constitutional: DENIES: Fever, Chills - EENT EENT: DENIES: Sore Throat, Ear Pain, Eye problems - NEURO Neurology: DENIES: Headache, Weakness, Vision blurred, Dizzinesss / Vertigo - CARDIOVASCULAR Cardiovascular: DENIES: Chest pain - RESPIRATORY Respiratory: DENIES: Trouble Breathing, Coughing - GASTROINTESTINAL Gastrointestinal: DENIES: Abdominal Pain, Black / Bloody Stools - REPRODUCTIVE Reproductive: DENIES: : - MUSCULOSKELETAL Musculoskeletal: REPORTS: Extremity pain Past Medical History - General Information source: Patient - Social History Smoking Status: Current Every Day Smoker Chew tobacco use (# tins/day): No Frequency of alcohol use: None Drug Abuse: None Family History: DM, Hypertension Patient has suicidal ideation: No Patient has homicidal ideation: No Pulmonary Medical History: Reports: Hx Bronchitis, Hx COPD, Hx Pneumonia Denies: Hx Asthma Neurological Medical History: Reports: Hx Migraine Endocrine Medical History: Reports: Hx Diabetes Mellitus Type 2 Renal/ Medical History: Denies: Hx Peritoneal Dialysis GI Medical History: Reports: Hx Gastritis Musculoskeletal Medical History: Reports Hx Musculoskeletal Trauma Psychiatric Medical History: Denies: Hx Depression Traumatic Medical History: Reports: Hx Fractures Past Surgical History: Reports: Hx Oral Surgery - wisdom, Hx Orthopedic Surgery - Right foot, Hx Tonsillectomy, Hx Tubal Ligation - Immunizations Immunizations up to date: Yes Hx Diphtheria, Pertussis, Tetanus Vaccination: Yes Hx Pneumococcal Vaccination: 02/09/14 Vertical Provider Document - CONSTITUTIONAL Notes: PHYSICAL EXAMINATION: GENERAL: Well-appearing, well-nourished and in no acute distress. HEAD: Atraumatic, normocephalic. EYES: Pupils equal round extraocular movements intact, conjunctiva are normal. ENT: Nares patent NECK: Normal range of motion LUNGS: No respiratory distress Musculoskeletal: Normal range of motion, limited range of motion to right shoulder, normal pulses distal to injury, cap refill less than 3 seconds, normal motor and sensation NEUROLOGICAL: Normal speech, normal gait. PSYCH: Normal mood, normal affect. SKIN: Warm, Dry, normal turgor, no rashes or lesions noted. - INFECTION CONTROL TRAVEL OUTSIDE OF THE [place] IN LAST 30 DAYS: No Course - Re-evaluation Re-evalutation: 02/01/18 20:57 X-ray negative for any acute findings to include fracture dislocation. Patient will be placed in a sling and given supportive care instructions. Patient will also be given a prescription for muscle relaxers. - Vital Signs Vital signs: Temp Pulse Resp BP Pulse Ox 98.7 F 98 16 145/66 H 96 02/01/18 19:43 02/01/18 19:43 02/01/18 19:43 02/01/18 19:43 02/01/18 19:43 Procedures - Immobilization Right shoulder Immobilizer type: Sling Discharge - Discharge Clinical Impression: Shoulder injury Qualifiers: Encounter type: initial encounter Laterality: right Qualified Code(s): S49.91XA - Unspecified injury of right shoulder and upper arm, initial encounter Condition: Stable Disposition: HOME, SELF-CARE Additional Instructions: Shoulder Injury You have injured your shoulder. This usually results from stretching or tearing of the tendons during trauma. Time and protection are required in order to heal properly. Many injuries are quite disabling, and should be taken seriously. Initial treatment includes cold packs and a sling to rest the shoulder. The physician has assessed the seriousness of your injury, and has outlined a treatment plan. Understand that this treatment may change, depending on how you progress. If a re-examination was recommended, it is important that you follow up as instructed. Some shoulder injuries (such as partial tear of the rotator cuff) are only suspected after you've failed to improve. Call us if there's severe pain, numbness, or loss of function. Ice & Elevation Apply ice packs frequently against the painful area. Many different schedules are recommended, such as "20 minutes on, 20 minutes off" or "one hour ice, two hours rest." If you need to work, you may need to go longer between ice treatments. You should plan to have the area ice packed AT LEAST one- fourth of the time. The ice should be applied over the wrap, tape, or splint, or over a layer of cloth -- not directly against the skin. Some ice bags have a built-in cloth and can be put directly on the skin. Your injured part should be elevated as much as possible over the next 48 hours. Try to keep the injury above the level of the heart. Avoid use of the injured area. Elevation and rest will decrease the swelling. Your x-ray today was negative for any acute fracture or dislocation. Please use the sling to aid in comfort. Apply ice to the area as directed above. Take ibuprofen 600 mg every 6 hours for pain. Use a muscle relaxers as directed. Follow-up with your primary care provider or orthopedics if not improving over the next 7-10 days. Prescriptions: Methocarbamol [Robaxin 750 mg Tablet] 750 mg PO ASDIR PRN #40 tablet PRN Reason: Forms: Return to Work
== END 2018-02-01 21:15 | disposition home or self-care (01) ==
LOC: ER 19:12
DX: S49.91XA Unspecified injury of right shoulder and upper arm, initial encounter (principal); X58.XXXA Exposure to other specified factors, initial encounter; M25.511 Pain in right shoulder; F17.200 Nicotine dependence, unspecified, uncomplicated; E11.9 Type 2 diabetes mellitus without complications; J44.9 Chronic obstructive pulmonary disease, unspecified
CPT/HCPCS: 99283; 96374; 73030; J1885

== ENCOUNTER 2018-02-11 15:13 | Emergency (ER) | payer SELFPAY ==
[2018-02-11 15:18] VITALS: BP 149/93
[2018-02-11] MEDS ORDERED: IBUPROFEN 800 MG TABLET PO ONE (15:27)
--- NOTE | 2018-02-11 15:32 | ER Document Report ---
HPI - HPI Patient complains to provider of: r elbow pain Onset: Other - 2 wk Onset/Duration: Persistent Quality of pain: Achy Pain Level: 5 Context: Patient presents complaining of right elbow pain from a fall that occurred 2 weeks ago. Patient is right-hand dominant. Patient complains of increased pain with extension of the elbow. Associated Symptoms: Other - Right elbow pain Exacerbated by: Movement Relieved by: Denies Similar symptoms previously: No Recently seen / treated by doctor: No - ROS ROS below otherwise negative: Yes Systems Reviewed and Negative: Yes All other systems reviewed and negative - CONSTITUTIONAL Constitutional: DENIES: Fever - REPRODUCTIVE Reproductive: DENIES: : - MUSCULOSKELETAL Musculoskeletal: REPORTS: Extremity pain - Right elbow - DERM Skin Color: Normal Skin Problems: None Past Medical History - General Information source: Patient - Social History Smoking Status: Current Every Day Smoker Smoking Education Provided: Yes Frequency of alcohol use: None Drug Abuse: None 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 Lives with: Family Family History: DM, Hypertension Pulmonary Medical History: Reports: Hx Bronchitis, Hx COPD, Hx Pneumonia Denies: Hx Asthma Neurological Medical History: Reports: Hx Migraine Endocrine Medical History: Reports: Hx Diabetes Mellitus Type 2 Renal/ Medical History: Denies: Hx Peritoneal Dialysis GI Medical History: Reports: Hx Gastritis Musculoskeletal Medical History: Reports Hx Musculoskeletal Trauma Psychiatric Medical History: Denies: Hx Depression Traumatic Medical History: Reports: Hx Fractures Past Surgical History: Reports: Hx Oral Surgery - wisdom, Hx Orthopedic Surgery - Right foot, Hx Tonsillectomy, Hx Tubal Ligation - Immunizations Immunizations up to date: Yes Hx Diphtheria, Pertussis, Tetanus Vaccination: Yes Hx Pneumococcal Vaccination: 02/09/14 Vertical Provider Document - CONSTITUTIONAL Agree With Documented VS: Yes Exam Limitations: No Limitations General Appearance: WD/WN, No Apparent Distress - INFECTION CONTROL TRAVEL OUTSIDE OF THE [place] IN LAST 30 DAYS: No - HEENT HEENT: Atraumatic, Normocephalic - NECK Neck: Normal Inspection - RESPIRATORY Respiratory: No Respiratory Distress - CARDIOVASCULAR Pulses: Normal: Radial - MUSCULOSKELETAL/EXTREMETIES Musculoskeletal/Extremeties: MAEW, Tender - Right elbow tenderness over medial and lateral epicondyles as well as olecranon process. Tenderness increases with extension of right elbow, No Edema - NEURO Level of Consciousness: Awake, Alert, Appropriate Motor/Sensory: No Motor Deficit - DERM Integumentary: Warm, Dry, No Rash Course - Vital Signs Vital signs: Temp Pulse Resp BP Pulse Ox 98.7 F 96 16 149/93 H 97 02/11/18 15:17 02/11/18 15:17 02/11/18 15:17 02/11/18 15:17 02/11/18 15:17 - Diagnostic Test Radiology reviewed: Reports reviewed Procedures - Immobilization Right Elbow Pre-Proc Neuro Vasc Exam: Normal Immobilizer type: Sling Performed by: PCT Post-Proc Neuro Vasc Exam: Normal Alignment checked and good: Yes Discharge - Discharge Clinical Impression: Sprain of elbow, right Qualifiers: Encounter type: initial encounter Qualified Code(s): S53.401A - Unspecified sprain of right elbow, initial encounter Condition: Stable Disposition: HOME, SELF-CARE Instructions: Sprain ([facility]), Temporary Sling ([facility]) Additional Instructions: Return immediately for any new or worsening symptoms Followup with your primary care provider, call tomorrow to make a followup appointment Where sling for the next 4 days while awake only and then remove. Follow-up with orthopedics for further evaluation, call tomorrow for an appointment Prescriptions: Naproxen [Naprosyn 250 Nmg Tablet] 1 tab PO BID #14 tablet Forms: Smoking Cessation Education, Return to Work Referrals: [facility] ([facility]) [Provider Group] - Follow up tomorrow
--- NOTE | 2018-02-11 15:47 | RADIOLOGY REPORT (SQ) ---
EXAM DESCRIPTION: ELBOW RIGHT OVER 2 VIEWS COMPLETED DATE/TIME: 02/11/2018 3:38 pm REASON FOR STUDY: fall 2 wk ago, r elbow pain COMPARISON: None. NUMBER OF VIEWS: Four views. TECHNIQUE: AP, lateral, and both oblique radiographic images acquired of the right elbow. LIMITATIONS: None. FINDINGS: MINERALIZATION: Normal. BONES: No acute fracture or dislocation. No worrisome bone lesions. JOINT: No effusion. SOFT TISSUES: No soft tissue swelling. No foreign body. OTHER: No other significant finding. IMPRESSION: NEGATIVE STUDY OF THE RIGHT ELBOW. NO RADIOGRAPHIC EVIDENCE OF ACUTE INJURY. TECHNICAL DOCUMENTATION: JOB ID: [id number] [employer]- All Rights Reserved Reading location - IP/workstation name: [email or web address]
== END 2018-02-11 16:05 | disposition home or self-care (01) ==
LOC: ER 15:13
DX: S53.401A Unspecified sprain of right elbow, initial encounter (principal); M25.521 Pain in right elbow; W19.XXXA Unspecified fall, initial encounter; F17.200 Nicotine dependence, unspecified, uncomplicated; J44.9 Chronic obstructive pulmonary disease, unspecified; E11.9 Type 2 diabetes mellitus without complications
CPT/HCPCS: 99283

== ENCOUNTER 2018-04-07 20:01 | Emergency (ER) | payer SELFPAY ==
[2018-04-07 20:10] VITALS: BP 139/78
== END 2018-04-07 20:40 | disposition left against medical advice (07) ==
LOC: ER 20:01
DX: Z53.21 Procedure and treatment not carried out due to patient leaving prior to being seen by health care provider (principal)

== ENCOUNTER 2018-06-20 20:41 | Emergency (ER) | payer SELFPAY ==
[2018-06-20 20:57] VITALS: BP 156/86
--- NOTE | 2018-06-20 22:16 | RADIOLOGY REPORT (SQ) ---
EXAM DESCRIPTION: XR HAND 3 OR MORE VIEWS COMPLETED DATE/TME: 06/20/2018 00:00 CLINICAL HISTORY: 43 years, Female, possible fx COMPARISON: None. NUMBER OF VIEWS: 3 TECHNIQUE: 3 view left hand LIMITATIONS: None. FINDINGS: Negative for fracture or dislocation. Soft tissues are unremarkable. Joint spaces are preserved IMPRESSION: Negative exam copyright 2010 [employer]- All Rights Reserved
--- NOTE | 2018-06-20 22:19 | ER Document Report ---
HPI - HPI Time Seen by Provider: 06/20/18 22:01 Pain Level: 5 Notes: Patient is a 43-year-old female who presents to the emergency department with chief complaint of pain to her left hand. She reports she was cooking dinner when her son opened up a kitchen cabinet and a plate fell off onto her hand. Striking her third and fourth digit. She reports this happened just prior to arrival. Has not taken any medications for same. - REPRODUCTIVE Reproductive: DENIES: : Past Medical History - General Information source: Patient - Social History Smoking Status: Current Every Day Smoker Frequency of alcohol use: None Drug Abuse: None Family History: DM, Hypertension - Past Medical History Cardiac Medical History: Reports: Hx Hypertension Pulmonary Medical History: Reports: Hx Bronchitis, Hx COPD, Hx Pneumonia Denies: Hx Asthma Neurological Medical History: Reports: Hx Migraine Endocrine Medical History: Reports: Hx Diabetes Mellitus Type 2 Renal/ Medical History: Denies: Hx Peritoneal Dialysis GI Medical History: Reports: Hx Gastritis Musculoskeletal Medical History: Reports Hx Musculoskeletal Trauma Psychiatric Medical History: Denies: Hx Depression Traumatic Medical History: Reports: Hx Fractures Past Surgical History: Reports: Hx Oral Surgery - wisdom, Hx Orthopedic Surgery - Right foot, Hx Tonsillectomy, Hx Tubal Ligation - Immunizations Immunizations up to date: Yes Hx Diphtheria, Pertussis, Tetanus Vaccination: Yes Hx Pneumococcal Vaccination: 02/09/14 Vertical Provider Document - CONSTITUTIONAL Notes: PHYSICAL EXAMINATION: GENERAL: Well-appearing, well-nourished and in no acute distress. HEAD: Atraumatic, normocephalic. EYES: Pupils equal round extraocular movements intact, conjunctiva are normal. ENT: Nares patent NECK: Normal range of motion LUNGS: No respiratory distress Musculoskeletal: Limited range of motion to left third and fourth digits, mild swelling noted, cap refill less than 3 seconds, normal sensation distal to injury. NEUROLOGICAL: Normal speech, normal gait. PSYCH: Normal mood, normal affect. SKIN: Warm, Dry, normal turgor, no rashes or lesions noted. - INFECTION CONTROL TRAVEL OUTSIDE OF THE [place] IN LAST 30 DAYS: No Course - Re-evaluation Re-evalutation: X-rays negative for any acute fracture or dislocation. Patient does have obvious swelling to the area, patient will be instructed to take ibuprofen, ice and elevate the hand. 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 - Vital Signs Vital signs: Temp Pulse Resp BP Pulse Ox 98.1 F 98 20 156/86 H 99 06/20/18 20:56 06/20/18 20:56 06/20/18 20:56 06/20/18 20:56 06/20/18 20:56 Discharge - Discharge Clinical Impression: Contusion Qualifiers: Encounter type: initial encounter Contusion area: hand Laterality: left Qualified Code(s): S60.222A - Contusion of left hand, initial encounter Condition: Stable Disposition: HOME, SELF-CARE Additional Instructions: Contusion Your injury has resulted in a contusion -- a crushing of the deep tissues. No injury to important structures was detected during the physician's exam. Contusions vary in the amount of pain they cause, and in the length of time required for healing. Typically, the area will become bruised, and will remain painful to touch for two or three weeks. However, most patients are back to working and playing within a few days. After the initial period of rest and cold-packs, your symptoms (together with the doctor's recommendations) will determine how rapidly you can get back to full activity. Usually this means "do what feels okay, but don't do things that hurt." If re-examination was recommended, it's important to follow up as instructed. Call the doctor or return any time if pain increases, if swelling becomes severe, if you develop numbness or weakness in an injured extremity, or if any other alarming symptoms occur. Ice & Elevation Apply ice packs frequently against the painful area. Many different schedules are recommended, such as "20 minutes on, 20 minutes off" or "one hour ice, two hours rest." If you need to work, you may need to go longer between ice treatments. You should plan to have the area ice packed AT LEAST one-fourth of the time. The ice should be applied over the wrap, tape, or splint, or over a layer of cloth -- not directly against the skin. Some ice bags have a built-in cloth and can be put directly on the skin. Your injured part should be elevated as much as possible over the next 48 hours. Try to keep the injury above the level of the heart. Avoid use of the injured area. Elevation and rest will decrease the swelling. Ibuprofen Ibuprofen is an excellent, safe drug for pain control. In addition, it has potent antiinflammatory effects which are beneficial, especially in the treatment of injuries, arthritis, or tendonitis. It's best to take ibuprofen with food. Persons with ulcer disease or allergy to aspirin should notify their physician of this before taking ibuprofen. Take the medication exactly as prescribed. Don't take additional doses unless instructed to do so by your doctor. If you develop wheezing, shortness of breath, hives, faintness, stomach pain, vomiting, or dark black stools, return for re-evaluation at once. The x-rays were negative for any fracture or dislocation. Please take ibuprofen [id number] as directed to help with pain and inflammation. Forms: Return to Work Referrals: IRIS LEZAMA MD [Primary Care Provider] - Follow up as needed
[2018-06-20] MEDS ORDERED: IBUPROFEN 600 MG TABLET PO ONE (22:29)
== END 2018-06-20 22:42 | disposition home or self-care (01) ==
LOC: ER 20:41
DX: S60.222A Contusion of left hand, initial encounter (principal); M79.642 Pain in left hand; W20.8XXA Other cause of strike by thrown, projected or falling object, initial encounter; F17.200 Nicotine dependence, unspecified, uncomplicated; I10 Essential (primary) hypertension; E11.9 Type 2 diabetes mellitus without complications; Z98.51 Tubal ligation status
CPT/HCPCS: 99283

== ENCOUNTER 2018-07-01 13:34 | Emergency (ER) | payer SELFPAY ==
[2018-07-01 14:55] VITALS: BP 122/77
--- NOTE | 2018-07-01 14:57 | ER Document Report ---
ED ENT - General Chief Complaint: Cold Symptoms Stated Complaint: COUGH Time Seen by Provider: 07/01/18 14:36 Primary Care Provider: IRIS LEZAMA MD [Primary Care Provider] - Follow up as needed Mode of Arrival: Ambulatory Information source: Patient Notes: 43-year-old female presents to ED for complaint of cough congestion nasal drainage sore throat and bilateral ear pain since morning. She states she had sinus pressure and headache but no fever nausea or vomiting. She states that both of her sons had similar symptoms for a couple weeks and then she became sick this morning. She is alert oriented respirations regular and unlabored speaking in full sentence and walks with a even steady gait. TRAVEL OUTSIDE OF THE [place] IN LAST 30 DAYS: No - HPI Patient complains to provider of: Ear problem, Nose problem, Throat problem Onset: This morning Onset/Duration: Gradual Quality of pain: Achy Severity: Moderate Pain Level: 3 Context: Recent Illness Location of pain: Ears, Nose, Sinus, Throat Associated symptoms: Congestion, Cough, Ear pain, Runny nose, Sinus pain, Sinus drainage, Sore throat Similar symptoms previously: Yes Recently seen / treated by doctor: No - Related Data Allergies/Adverse Reactions: Penicillins Allergy (Verified 07/01/18 13:37) Past Medical History - General Information source: Patient - Social History Smoking Status: Current Every Day Smoker Cigarette use (# per day): Yes - 1/2 pack/day Chew tobacco use (# tins/day): No Smoking Education Provided: Yes - 4 minutes Frequency of alcohol use: None Drug Abuse: None Occupation: [employer] Lives with: Family Family History: DM, Hypertension Patient has suicidal ideation: No Patient has homicidal ideation: No - Past Medical History Cardiac Medical History: Reports: Hx Hypertension Pulmonary Medical History: Reports: Hx Bronchitis, Hx Pneumonia EENT Medical History: Reports: None Neurological Medical History: Reports: Hx Migraine Endocrine Medical History: Reports: Hx Diabetes Mellitus Type 2 Renal/ Medical History: Reports: None Malignancy Medical History: Reports: None GI Medical History: Reports: Hx Gastritis Musculoskeletal Medical History: Reports Hx Musculoskeletal Trauma Skin Medical History: Reports None Psychiatric Medical History: Reports: None Traumatic Medical History: Reports: Hx Fractures - Ankle/foot Infectious Medical History: Reports: None Past Surgical History: Reports: Hx Oral Surgery - wisdom, Hx Orthopedic Surgery - Right ankle, Hx Tonsillectomy, Hx Tubal Ligation - Immunizations Immunizations up to date: Yes Hx Diphtheria, Pertussis, Tetanus Vaccination: Yes Hx Pneumococcal Vaccination: 02/09/14 Review of Systems - Review of Systems Constitutional: Chills, Recent illness EENT: Ear pain, Nose congestion, Nose discharge, Sinus pressure, Sinus discharge, Throat pain Cardiovascular: No symptoms reported Respiratory: Cough. denies: Short of breath, Wheezing Gastrointestinal: No symptoms reported Genitourinary: No symptoms reported Female Genitourinary: No symptoms reported Musculoskeletal: No symptoms reported Skin: No symptoms reported Hematologic/Lymphatic: No symptoms reported Neurological/Psychological: No symptoms reported Physical Exam - Vital signs Vitals: Temp Pulse Resp BP Pulse Ox 99.0 F 100 16 136/81 H 97 07/01/18 13:42 07/01/18 13:42 07/01/18 13:42 07/01/18 13:42 07/01/18 13:42 Interpretation: Normal - General General appearance: Appears well, Alert - HEENT Head: Normocephalic, Atraumatic Eyes: Normal Pupils: PERRL Ears: Normal External canal: Normal Tympanic membrane: Normal Sinus: Normal Nasal: Purulent discharge, Swelling Mouth/Lips: Normal Mucous membranes: Normal Pharynx: Erythema, Post nasal drainage. No: Exudate, Tonsillar hypertrophy Neck: Normal - Respiratory Respiratory status: No respiratory distress Chest status: Nontender Breath sounds: Nonproductive cough. No: Rales, Rhonchi, Stridor, Wheezing Chest palpation: Normal - Cardiovascular Rhythm: Regular Heart sounds: Normal auscultation Murmur: No - Abdominal Inspection: Normal Distension: No distension Bowel sounds: Normal Tenderness: Nontender Organomegaly: No organomegaly - Back Back: Normal, Nontender - Extremities General upper extremity: Normal inspection, Nontender, Normal color, Normal ROM, Normal temperature General lower extremity: Normal inspection, Nontender, Normal color, Normal ROM, Normal temperature, Normal weight bearing. No: Kirit's sign - Neurological Neuro grossly intact: Yes Cognition: Normal Orientation: AAOx4 [place] Coma Scale Eye Opening: Spontaneous [place] Coma Scale Verbal: Oriented [place] Coma Scale Motor: Obeys Commands [place] Coma Scale Total: 15 Speech: Normal Motor strength normal: LUE, RUE, LLE, RLE Sensory: Normal - Psychological Associated symptoms: Normal affect, Normal mood - Skin Skin Temperature: Warm Skin Moisture: Dry Skin Color: Normal Course - Re-evaluation Re-evalutation: 07/01/18 21:28 After performing a Medical Screening Examination, I estimate there is LOW risk for ACUTE CORONARY SYNDROME, RESPIRATORY FAILURE, SEPSIS OR MENINGITIS, thus I consider the discharge disposition reasonable. I have reevaluated this patient multiple times and no significant life threatening changes are noted. The patient and I have discussed the diagnosis and risks, and we agree with discharging home with close follow-up. We also discussed returning to the Emergency Department immediately if new or worsening symptoms occur. We have discussed the symptoms which are most concerning (e.g., changing or worsening pain, trouble swallowing or breathing, neck stiffness, fever) that necessitate immediate return. - Vital Signs Vital signs: Temp Pulse Resp BP Pulse Ox 98.3 F 94 20 122/77 95 07/01/18 14:53 07/01/18 14:53 07/01/18 14:53 07/01/18 14:53 07/01/18 14:53 Discharge - Discharge Clinical Impression: Otalgia of both ears URI (upper respiratory infection) Qualifiers: URI type: unspecified viral URI Qualified Code(s): J06.9 - Acute upper respiratory infection, unspecified Condition: Stable Disposition: HOME, SELF-CARE Additional Instructions: UPPER RESPIRATORY ILLNESS: You have a viral infection of the respiratory passages -- a "cold." This common infection causes nasal congestion, drainage, and often sore throat and cough. It is highly contagious. The disease usually lasts about 10 to 14 days. There is no "cure" for the viral infection -- it must run its course. If there is a complication, such as bacterial infection in the nose, sinuses, middle ear, or bronchial tubes, antibiotics may be required. The antibiotics won't affect the virus. Drink plenty of fluids. A humidifier may help. An expectorant medication or decongestant may make you more comfortable. Use acetaminophen or ibuprofen for fever or aches. See the doctor if fever persists over two days, if there is any significant worsening of your symptoms, or if you simply fail to improve as expected. USE OF ACETAMINOPHEN (Tylenol): Acetaminophen may be taken for pain relief or fever control. It's much safer than aspirin, offering a wider range of "safe" dosages. It is safe during . Some brand names are Tylenol, Panadol, Datril, Anacin 3, Tempra, and Liquiprin. Acetaminophen can be repeated every four hours. The following are maximum recommended dosages: >89 pounds or adults 650 mg to 900 mg Acetaminophen can be repeated every four hours. Maximum dose not to exceed 4000 mg a day. SMOKING: If you smoke, you should stop smoking. The tar and chemicals in cigarette smoke are harmful. Smoking has been shown to cause: emphysema chronic bronchitis lung cancer mouth and throat cancer stomach and pancreas cancer premature aging defects In addition, smoking increases ear and lung infections in children of smoke rs. Normal [id number]-[id number] cough and cold medications are not good for you with your history of high blood pressure. I would recommend Coricidin HB this is also [id number] but is a special cold medicine for people with high blood pressure. You can also use Flonase nasal spray this is [id number] also as well as Chloraseptic spray for your sore throat. Your ears do not have any sign s or symptoms of an infection. It is the pressure from your cough and cold symptoms. You can use Tylenol for this pain. You can also use salt and soda solution gargles to help remove the drainage from the back your throat. Salt and soda solution 1 quart of water 1 tablespoon of salt 1 teaspoon of baking soda Mixed 3 ingredients together and boil for 1 minute Placed in a covered quart jar Use 1/2 ounce of cold solution to gargle 3 times a day FOLLOW-UP CARE: If you have been referred to a physician for follow-up care, call the physicians office for an appointment as you were instructed or within the next two days. If you experience worsening or a significant change in your symptoms, notify the physician immediately or return to the Emergency Department at any time for re-evaluation. Forms: Smoking Cessation Education, Return to Work Referrals: IRIS LEZAMA MD [Primary Care Provider] - Follow up as needed
== END 2018-07-01 15:11 | disposition home or self-care (01) ==
LOC: ER 13:34
DX: J06.9 Acute upper respiratory infection, unspecified (principal); B97.89 Other viral agents as the cause of diseases classified elsewhere; H92.03 Otalgia, bilateral; R05 Cough; J02.9 Acute pharyngitis, unspecified; J34.89 Other specified disorders of nose and nasal sinuses; R51 Headache; R09.81 Nasal congestion; R09.82 Postnasal drip; I10 Essential (primary) hypertension; E11.9 Type 2 diabetes mellitus without complications; F17.210 Nicotine dependence, cigarettes, uncomplicated; Z71.6 Tobacco abuse counseling; Z88.0 Allergy status to penicillin; Z87.01 Personal history of pneumonia (recurrent)
CPT/HCPCS: 99283; 99406

== ENCOUNTER 2018-08-02 12:14 | Emergency (ER) | payer SELFPAY ==
[2018-08-02] MEDS ORDERED: ONDANSETRON HCL INJ/PF 4 MG/2 ML SDV IV ONE (12:35)
[2018-08-02] MEDS ORDERED: NORMAL SALINE 1000 ML 1,000 ML IV ONE (12:35)
--- NOTE | 2018-08-02 13:22 | ER Document Report ---
ED General - General Chief Complaint: Nausea/Vomiting/Diarrhea Stated Complaint: VOMITING Time Seen by Provider: 08/02/18 12:32 Primary Care Provider: IRIS LEZAMA MD [Primary Care Provider] - Follow up as needed TRAVEL OUTSIDE OF THE [place] IN LAST 30 DAYS: No - HPI Patient complains to provider of: Nausea vomiting Notes: Patient coming in for evaluation of nausea vomiting diarrhea. Patient is acutely started at 5 AM this morning. Patient that she was able to tolerate toast. Patient states she is a diabetic on Levemir and metformin did not take her medications today. Patient denies any other sick contacts of her son is also going to be seen for similar symptoms. Denies any recent antibiotics or travel. - Related Data Allergies/Adverse Reactions: Penicillins Allergy (Verified 08/02/18 12:16) Past Medical History - Social History Smoking Status: Current Every Day Smoker Family History: DM, Hypertension Patient has suicidal ideation: No Patient has homicidal ideation: No - Past Medical History Cardiac Medical History: Reports: Hx Hypertension Pulmonary Medical History: Reports: Hx Bronchitis, Hx COPD, Hx Pneumonia Denies: Hx Asthma Neurological Medical History: Reports: Hx Migraine Endocrine Medical History: Reports: Hx Diabetes Mellitus Type 2 Renal/ Medical History: Denies: Hx Peritoneal Dialysis GI Medical History: Reports: Hx Gastritis Musculoskeletal Medical History: Reports Hx Musculoskeletal Trauma Psychiatric Medical History: Denies: Hx Depression Traumatic Medical History: Reports: Hx Fractures - Ankle/foot Past Surgical History: Reports: Hx Oral Surgery - wisdom, Hx Orthopedic Surgery - Right ankle, Hx Tonsillectomy, Hx Tubal Ligation - Immunizations Immunizations up to date: Yes Hx Diphtheria, Pertussis, Tetanus Vaccination: Yes Hx Pneumococcal Vaccination: 02/09/14 Review of Systems - Review of Systems Constitutional: No symptoms reported EENT: No symptoms reported Cardiovascular: No symptoms reported Respiratory: No symptoms reported Gastrointestinal: Diarrhea, Nausea, Vomiting Genitourinary: No symptoms reported Female Genitourinary: No symptoms reported Musculoskeletal: No symptoms reported Skin: No symptoms reported Hematologic/Lymphatic: No symptoms reported Neurological/Psychological: No symptoms reported -: Yes All other systems reviewed and negative Physical Exam - Vital signs Vitals: Temp Pulse Resp BP 98.8 F 99 16 140/75 H 08/02/18 12:26 08/02/18 12:26 08/02/18 12:26 08/02/18 12:26 Interpretation: Normal - General General appearance: Appears well, Alert - HEENT Head: Normocephalic, Atraumatic Eyes: Normal Pupils: PERRL - Respiratory Respiratory status: No respiratory distress Chest status: Nontender Breath sounds: Normal Chest palpation: Normal - Cardiovascular Rhythm: Regular Heart sounds: Normal auscultation Murmur: No - Abdominal Inspection: Normal Distension: No distension Bowel sounds: Normal Tenderness: Nontender Organomegaly: No organomegaly - Back Back: Normal, Nontender - Extremities General upper extremity: Normal inspection, Nontender, Normal color, Normal ROM, Normal temperature General lower extremity: Normal inspection, Nontender, Normal color, Normal ROM, Normal temperature, Normal weight bearing. No: Kirit's sign - Neurological Neuro grossly intact: Yes Cognition: Normal Orientation: AAOx4 [place] Coma Scale Eye Opening: Spontaneous [place] Coma Scale Verbal: Oriented [place] Coma Scale Motor: Obeys Commands [place] Coma Scale Total: 15 Speech: Normal Motor strength normal: LUE, RUE, LLE, RLE Sensory: Normal - Psychological Associated symptoms: Normal affect, Normal mood - Skin Skin Temperature: Warm Skin Moisture: Dry Skin Color: Normal Course - Re-evaluation Re-evalutation: 08/02/18 13:21 The patient presents with n/v/d without signs of peritonitis or other life- threatening or serious etiology. The patient appears stable for discharge and has been instructed to return immediately if the symptoms worsen in any way, or in 8-12hr if not improved for re-evaluation. The patient has been instructed to return if the symptoms worsen or change in any way. - Vital Signs Vital signs: Temp Pulse Resp BP Pulse Ox 98.8 F 99 16 140/75 H 08/02/18 12:26 08/02/18 12:26 08/02/18 12:26 08/02/18 12:26 - Laboratory Laboratory results interpreted by me: 08/02/18 12:45 POC Glucose 309 H Discharge - Discharge Clinical Impression: Nausea vomiting and diarrhea Instructions: Gastroenteritis (adult) ([facility]) Additional Instructions: Your symptoms are likely due to a virus. However, it is important that you continue to monitor for any concerning symptoms including inability to tolerate oral fluids, less than 2 urinations in a 24 hour period, and lethargy Please continue to offer oral solutions such as Pedialyte, water, gatorade. It is okay if you do not want to eat over the next several days but it is important that they continue to drink fluids. You may also provide a medication such as ibuprofen (Motrin) or acetaminophen (Tylenol) per box instructions for fever. Please also follow-up with your doctor in the next several days. Please take the medications given to you as prescribed. You may also take the Zofran or Phenergan as needed for nausea control. Prescriptions: Ondansetron HCl [Zofran 4 mg Tablet] 1 - 2 tab PO Q6 #30 tablet Promethazine HCl [Phenergan 25 mg Tablet] 25 mg PO Q6 #30 tablet Forms: Return to Work Referrals: IRIS LEZAMA MD [Primary Care Provider] - Follow up as needed
[2018-08-02 13:51] LABS: ALANINE AMINOTRANSFERASE 24 U/L (9-52); ALBUMIN 3.9 g/dL (3.5-5.0); ALKALINE PHOSPHATASE 69 U/L (38-126); ANION GAP 13 (5-19); ASPARTATE AMINO TRANSFERASE 49 U/L (14-36); BILIRUBIN,DIRECT 0.5 mg/dL (0.0-0.4); BILIRUBIN,TOTAL 1.1 mg/dL (0.2-1.3); BLOOD UREA NITROGEN 14 mg/dL (7-20); CALCIUM 9.1 mg/dL (8.4-10.2); CARBON DIOXIDE 23 mmol/L (22-30); CHLORIDE 98 mmol/L (98-107); GLUCOSE 299 mg/dL (75-110); LIPASE 53.3 U/L (23-300); POTASSIUM 4.5 mmol/L (3.6-5.0); SODIUM 133.6 mmol/L (137-145); TOTAL PROTEIN 7.2 g/dL (6.3-8.2)
[2018-08-02 14:14] VITALS: BP 133/99
== END 2018-08-02 14:15 | disposition home or self-care (01) ==
LOC: ER 12:14
DX: R11.2 Nausea with vomiting, unspecified (principal); R19.7 Diarrhea, unspecified; E11.9 Type 2 diabetes mellitus without complications; Z79.4 Long term (current) use of insulin; Z79.84 Long term (current) use of oral hypoglycemic drugs; F17.200 Nicotine dependence, unspecified, uncomplicated; J44.9 Chronic obstructive pulmonary disease, unspecified; Z88.0 Allergy status to penicillin
CPT/HCPCS: 99284; 96361; 96374; 36415; 82962; 83690; 80053; J2405; J7030

== ENCOUNTER → 2018-10-19 | Outpatient (CLI) | payer OTHER ==
[2018-10-19 07:57] LABS: ABSOLUTE EOSINOPHILS # (AUTO) 0.2 10^3/uL (0.0-0.6); ABSOLUTE LYMPHOCYTES (AUTO) 1.6 10^3/uL (0.5-4.7); ABSOLUTE MONOCYTES (AUTO) 0.3 10^3/uL (0.1-1.4); ABSOLUTE NEUT (AUTO) 3.3 10^3/uL (1.7-8.2); BASOPHILS % (AUTO) 0.4 % (0-2); EOSINOPHILS % (AUTO) 2.8 % (0-6); HEMATOCRIT 38.1 % (36.0-47.0); HEMOGLOBIN 13.5 g/dL (12.0-15.5); LYMPHOCYTES % (AUTO) 29.4 % (13-45); MEAN CORPUSCULAR HEMOGLOBIN 31.9 pg (27.0-33.4); MEAN CORPUSCULAR HGB CONC 35.3 g/dL (32.0-36.0); MEAN CORPUSCULAR VOLUME 91 fl (80-97); MONOCYTES % (AUTO) 5.1 % (3-13); PLATELET COUNT 244 10^3/uL (150-450); RED BLOOD COUNT 4.22 10^6/uL (3.72-5.28); SEGMENTED NEUTROPHILS % (AUTO) 62.3 % (42-78); TOTAL CELLS COUNTED % (AUTO) 100 %; WHITE BLOOD COUNT 5.3 10^3/uL (4.0-10.5)
[2018-10-19 08:13] LABS: ANION GAP 9 (5-19); BLOOD UREA NITROGEN 10 mg/dL (7-20); CALCIUM 8.7 mg/dL (8.4-10.2); CARBON DIOXIDE 23 mmol/L (22-30); CHLORIDE 108 mmol/L (98-107); CHOLESTEROL 260.41 mg/dL (0-200); GLUCOSE 190 mg/dL (75-110); POTASSIUM 4.2 mmol/L (3.6-5.0); SODIUM 139.9 mmol/L (137-145)
[2018-10-19 08:21] LABS: TRIGLYCERIDES 1402 mg/dL (<150)
[2018-10-19 08:27] LABS: DIRECT LDL < 30 mg/dL (<100)
== END ==
LOC: CCC 07:06
DX: Z00.00 Encounter for general adult medical examination without abnormal findings (principal)
CPT/HCPCS: 36415; 80048; 80061; 83036; 84443; 85025

== ENCOUNTER 2018-10-22 15:46 | Emergency (ER) | payer OTHER ==
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
[2018-10-22 17:32] VITALS: BP 132/85
== END 2018-10-22 17:33 | disposition home or self-care (01) ==
LOC: ER 15:46
DX: Z53.21 Procedure and treatment not carried out due to patient leaving prior to being seen by health care provider (principal); M54.9 Dorsalgia, unspecified
CPT/HCPCS: 99283

== ENCOUNTER → 2018-12-03 | Outpatient (CLI) | payer OTHER ==
--- NOTE | 2018-12-03 15:22 | RADIOLOGY REPORT (SQ) ---
EXAM DESCRIPTION: FOOT LEFT 2 VIEWS COMPLETED DATE/TIME: 12/03/2018 2:49 pm REASON FOR STUDY: PAIN IN LEFT FOOT M79.672 PAIN IN LEFT FOOT COMPARISON: None. NUMBER OF VIEWS: Two views. TECHNIQUE: AP and lateral radiographic images acquired of the left foot. LIMITATIONS: None. FINDINGS: MINERALIZATION: Normal. BONES: No acute fracture or dislocation. No worrisome bone lesions. Plantar and dorsal calcaneal sp urs. JOINTS: No effusions. SOFT TISSUES: No soft tissue swelling. No foreign body. OTHER: No other significant finding. IMPRESSION: Calcaneal spurs. No acute finding. TECHNICAL DOCUMENTATION: JOB ID: [id number] [employer]- All Rights Reserved Reading location - IP/workstation name: [email or web address]
== END ==
LOC: CCC 14:39
DX: M79.672 Pain in left foot (principal)

== ENCOUNTER 2019-01-20 16:33 | Emergency (ER) | payer SELFPAY ==
--- NOTE | 2019-01-20 17:14 | ER Document Report ---
HPI - HPI Patient complains to provider of: left ear pain Time Seen by Provider: 01/20/19 16:57 Onset: Yesterday Onset/Duration: Gradual Quality of pain: Achy Pain Level: 5 Context: Patient presents complaining of left ear pain that started yesterday. Patient states she did have drainage from the ear earlier. No fever. No sore throat, no dental pain. Associated Symptoms: Earache. denies: Nonproductive cough, Productive cough, Fever, Sore throat Exacerbated by: Denies Relieved by: Denies Similar symptoms previously: Yes Recently seen / treated by doctor: No - ROS ROS below otherwise negative: Yes Systems Reviewed and Negative: Yes All other systems reviewed and negative - CONSTITUTIONAL Constitutional: DENIES: Fever, Chills - EENT EENT: REPORTS: Ear Pain. DENIES: Sore Throat, Congestion - RESPIRATORY Respiratory: DENIES: Coughing - GASTROINTESTINAL Gastrointestinal: DENIES: Nausea, Patient vomiting - REPRODUCTIVE Reproductive: DENIES: : - DERM Skin Color: Normal Skin Problems: None Past Medical History - General Information source: Patient - Social History Smoking Status: Current Every Day Smoker Smoking Education Provided: Yes Frequency of alcohol use: None Drug Abuse: None Occupation: food and beverage service manager Lives with: Family Family History: DM, Hypertension Patient has suicidal ideation: No Patient has homicidal ideation: No - Past Medical History Cardiac Medical History: Reports: Hx Hypercholesterolemia, Hx Hypertension Pulmonary Medical History: Reports: Hx Bronchitis, Hx COPD, Hx Pneumonia Denies: Hx Asthma Neurological Medical History: Reports: Hx Migraine Endocrine Medical History: Reports: Hx Diabetes Mellitus Type 2 Renal/ Medical History: Denies: Hx Peritoneal Dialysis GI Medical History: Reports: Hx Gastritis Musculoskeletal Medical History: Reports Hx Musculoskeletal Trauma Psychiatric Medical History: Denies: Hx Depression Traumatic Medical History: Reports: Hx Fractures - Ankle/foot Past Surgical History: Reports: Hx Oral Surgery - wisdom, Hx Orthopedic Surgery - Right ankle, Hx Tonsillectomy, Hx Tubal Ligation - Immunizations Immunizations up to date: Yes Hx Diphtheria, Pertussis, Tetanus Vaccination: Yes Hx Pneumococcal Vaccination: 02/09/14 Vertical Provider Document - CONSTITUTIONAL Agree With Documented VS: Yes Exam Limitations: No Limitations General Appearance: WD/WN, No Apparent Distress - INFECTION CONTROL TRAVEL OUTSIDE OF THE [place] IN LAST 30 DAYS: No - HEENT HEENT: Atraumatic, Normocephalic. negative: Pharyngeal Exudate, Pharyngeal Tenderness, Pharyngeal Erythema, Tympanic Membrane Red, Tympanic Membrane Bulging Notes: Mild swelling and erythema to left external auditory canal. No mastoid tenderness or swelling - NECK Neck: Normal Inspection, Supple. negative: Lymphadenopathy-Left, Lymphadenopathy-Right - RESPIRATORY Respiratory: Breath Sounds Normal, No Respiratory Distress - CARDIOVASCULAR Cardiovascular: Regular Rate, Regular Rhythm - MUSCULOSKELETAL/EXTREMETIES Musculoskeletal/Extremeties: MAEW - NEURO Level of Consciousness: Awake, Alert, Appropriate Motor/Sensory: No Motor Deficit - DERM Integumentary: Warm, Dry, No Rash Course - Vital Signs Vital signs: Temp Pulse Resp BP Pulse Ox 98.6 F 95 16 147/87 H 95 01/20/19 16:36 01/20/19 16:36 01/20/19 16:36 01/20/19 16:36 01/20/19 16:36 Discharge - Discharge Clinical Impression: Left otitis externa Qualifiers: Otitis externa type: unspecified type Chronicity: acute Qualified Code(s): H60.502 - Unspecified acute noninfective otitis externa, left ear Condition: Stable Disposition: HOME, SELF-CARE Instructions: Acetaminophen, Use of Ear Drops ([facility]), Otitis Externa ([facility]) Additional Instructions: Return immediately for any new or worsening symptoms Followup with your primary care provider, call tomorrow to make a followup appointment Prescriptions: Neomy Sulf/Polymyx B Sulf/Hc [Cortisporin Ear Suspension] 4 drop OT QID #1 bottle Forms: Smoking Cessation Education, Return to Work Referrals: [facility] [Primary Care Provider] - Follow up as needed
[2019-01-20 17:19] VITALS: BP 138/83
== END 2019-01-20 17:21 | disposition home or self-care (01) ==
LOC: ER 16:33
DX: H60.502 Unspecified acute noninfective otitis externa, left ear (principal); H92.02 Otalgia, left ear; F17.200 Nicotine dependence, unspecified, uncomplicated; I10 Essential (primary) hypertension; E11.9 Type 2 diabetes mellitus without complications; J44.9 Chronic obstructive pulmonary disease, unspecified

== ENCOUNTER 2019-02-26 22:27 | Emergency (ER) | payer SELFPAY ==
--- NOTE | 2019-02-26 22:56 | ER Document Report ---
ED Medical Screen (RME) - General Chief Complaint: Headache Stated Complaint: HEADACHE,NECK PAIN,VOMITING Time Seen by Provider: 02/26/19 22:51 Primary [facility]: [facility] [Primary Care Provider] - Follow up as needed Mode of Arrival: Ambulatory Information source: Patient Notes: 44-year-old female presented to ED for complaint of headache for the last 3 days. She states it is the back of the head goes down the neck. She denies any fevers. She states she is never had a headache like this before. She does have a history of high blood pressure diabetes, high cholesterol,. Smokes half pack a day does not drink or use any illicit drugs. She states usually when she has a headache she can take some ibuprofen it goes away but this headache is not gone away. She states the headache got worse and she developed nausea and vomiting about 930 tonight. She is she states it hurts to turn her head but no other changes at this time. Patient has tenderness to both shoulders upper back neck and back of her head. Pupils are equal and react to light. I have greeted and performed a rapid initial assessment of this patient. A comprehensive ED assessment and evaluation of the patient, analysis of test results and completion of medical decision making process will be conducted by an additional ED providers. TRAVEL OUTSIDE OF THE [place] IN LAST 30 DAYS: No - Related Data Allergies/Adverse Reactions: Penicillins Allergy (Verified 01/20/19 16:33) Past Medical History - Past Medical History Cardiac Medical History: Reports: Hx Hypercholesterolemia, Hx Hypertension Pulmonary Medical History: Reports: Hx Bronchitis, Hx COPD, Hx Pneumonia Denies: Hx Asthma Neurological Medical History: Reports: Hx Migraine Endocrine Medical History: Reports: Hx Diabetes Mellitus Type 2 Renal/ Medical History: Denies: Hx Peritoneal Dialysis GI Medical History: Reports: Hx Gastritis Musculoskeltal Medical History: Reports Hx Musculoskeletal Trauma Psychiatric Medical History: Denies: Hx Depression Traumatic Medical History: Reports: Hx Fractures - Ankle/foot Past Surgical History: Reports: Hx Oral Surgery - wisdom, Hx Orthopedic Surgery - Right ankle, Hx Tonsillectomy, Hx Tubal Ligation - Immunizations Immunizations up to date: Yes Hx Diphtheria, Pertussis, Tetanus Vaccination: Yes Physical Exam - Vital signs Vitals: Temp Pulse Resp BP Pulse Ox 98.3 F 100 18 148/93 H 97 02/26/19 22:33 02/26/19 22:33 02/26/19 22:33 02/26/19 22:33 02/26/19 22:33 Course - Vital Signs Vital signs: Temp Pulse Resp BP Pulse Ox 98.3 F 100 18 148/93 H 97 02/26/19 22:33 02/26/19 22:33 02/26/19 22:33 02/26/19 22:33 02/26/19 22:33 Doctor's Discharge - Discharge Referrals: [facility] [Primary Care Provider] - Follow up as needed
[2019-02-26] MEDS ORDERED: ONDANSETRON 4 MG TAB.RAPDIS PO ONE (22:57)
[2019-02-26] MEDS ORDERED: ACETAMINOPHEN 325 MG TABLET PO ONE (22:57)
[2019-02-26 23:39] LABS: ABSOLUTE EOSINOPHILS # (AUTO) 0.3 10^3/uL (0.0-0.6); ABSOLUTE LYMPHOCYTES (AUTO) 2.9 10^3/uL (0.5-4.7); ABSOLUTE MONOCYTES (AUTO) 0.4 10^3/uL (0.1-1.4); ABSOLUTE NEUT (AUTO) 4.3 10^3/uL (1.7-8.2); BASOPHILS % (AUTO) 0.3 % (0-2); EOSINOPHILS % (AUTO) 3.7 % (0-6); HEMATOCRIT 38.7 % (36.0-47.0); HEMOGLOBIN 13.2 g/dL (12.0-15.5); LYMPHOCYTES % (AUTO) 36.4 % (13-45); MEAN CORPUSCULAR HEMOGLOBIN 30.9 pg (27.0-33.4); MEAN CORPUSCULAR HGB CONC 34.2 g/dL (32.0-36.0); MEAN CORPUSCULAR VOLUME 91 fl (80-97); MONOCYTES % (AUTO) 5.6 % (3-13); PLATELET COUNT 378 10^3/uL (150-450); RED BLOOD COUNT 4.28 10^6/uL (3.72-5.28); RED CELL DISTRIBUTION WIDTH 12.3 % (11.5-14.0); TOTAL CELLS COUNTED % (AUTO) 100 %; WHITE BLOOD COUNT 7.9 10^3/uL (4.0-10.5)
[2019-02-26 23:56] LABS: ALBUMIN 4.1 g/dL (3.5-5.0); ALKALINE PHOSPHATASE 82 U/L (38-126); ANION GAP 11 (5-19); ASPARTATE AMINO TRANSFERASE 18 U/L (14-36); BILIRUBIN,DIRECT 0.1 mg/dL (0.0-0.4); BILIRUBIN,TOTAL 0.2 mg/dL (0.2-1.3); BLOOD UREA NITROGEN 13 mg/dL (7-20); CALCIUM 9.6 mg/dL (8.4-10.2); CARBON DIOXIDE 26 mmol/L (22-30); CHLORIDE 102 mmol/L (98-107); GLUCOSE 255 mg/dL (75-110); POTASSIUM 3.9 mmol/L (3.6-5.0); TOTAL PROTEIN 6.9 g/dL (6.3-8.2)
--- NOTE | 2019-02-27 02:17 | RADIOLOGY REPORT (SQ) ---
EXAM DESCRIPTION: CT HEAD WITHOUT IV CONTRAST COMPLETED DATE/TME: 02/27/2019 00:00 CLINICAL HISTORY: 44 years, Female, headache x 3 d, no hx of headaches COMPARISON: None. TECHNIQUE: Axial CT images of the brain were obtained without contrast. DLP 1017. Images stored on PACS. All CT scanners at this facility use dose modulation, iterative reconstruction, and/or weight based dosing when appropriate to reduce radiation dose to as low as reasonably achievable (ALARA). [facility]: Dose Right [facility]: CareDose [facility]: Dose Right [facility]: Teradose 4D [facility]: [employer] LIMITATIONS: None. FINDINGS: Subcutaneous: Unremarkable. No acute intracranial hemorrhage. No midline shift. No mass effect. Ventricles: No hydrocephalus. Carlos-white differentiation preserved. Paranasal sinuses/mastoid air cells: Mild mucosal thickening of the paranasal sinuses. Bones/orbits: Visualized portions are unremarkable. IMPRESSION: No acute intracranial abnormality. TECHNICAL DOCUMENTATION: Quality ID # [id number]: Final reports with documentation of one or more dose reduction techniques (e.g., Automated exposure control, adjustment of the mA and/or kV according to patient size, use of iterative reconstruction technique) copyright 2010 [employer]- All Rights Reserved
[2019-02-27] MEDS ORDERED: DIPHENHYDRAMINE HCL 50 MG/ML VIAL IM ONE (03:14)
[2019-02-27] MEDS ORDERED: KETOROLAC TROMETHAMINE 60 MG/2 ML SDV IM ONE (03:14)
[2019-02-27] MEDS ORDERED: PROCHLORPERAZINE EDISYLATE INJ 10 MG/2 ML VIAL IM ONE (03:15)
--- NOTE | 2019-02-27 03:16 | ER Document Report ---
HPI - HPI Time Seen by Provider: 02/26/19 22:51 Pain Level: 4 Notes: Patient is a 44-year-old female presenting to the emergency department with chief complaint of 3-day history of headache. Patient reports history of migraines, states this feels similar. Patient reports she can usually take ibuprofen for her migraines however this time her migraine has persisted despite taking ibuprofen. She reports that the pain started gradually in the front of her head and is now settled to the back of her head with radiation down into her shoulders. She reports this is typical of her migraines. She reports associated nausea, vomiting, light sensitivity and noise sensitivity. She has normal cervical range of motion and has not had a fever. She is currently reporting pain /. - NEURO Neurology: REPORTS: Headache - REPRODUCTIVE Reproductive: DENIES: : Past Medical History - General Information source: Patient - Social History Smoking Status: Current Every Day Smoker Chew tobacco use (# tins/day): No Frequency of alcohol use: None Drug Abuse: None Family History: DM, Hypertension Patient has suicidal ideation: No Patient has homicidal ideation: No - Past Medical History Cardiac Medical History: Reports: Hx Hypercholesterolemia, Hx Hypertension Pulmonary Medical History: Reports: Hx Bronchitis, Hx COPD, Hx Pneumonia Denies: Hx Asthma Neurological Medical History: Reports: Hx Migraine Endocrine Medical History: Reports: Hx Diabetes Mellitus Type 2 Renal/ Medical History: Denies: Hx Peritoneal Dialysis GI Medical History: Reports: Hx Gastritis Musculoskeletal Medical History: Reports Hx Musculoskeletal Trauma Psychiatric Medical History: Denies: Hx Depression Traumatic Medical History: Reports: Hx Fractures - Ankle/foot Past Surgical History: Reports: Hx Oral Surgery - wisdom, Hx Orthopedic Surgery - Right ankle, Hx Tonsillectomy, Hx Tubal Ligation - Immunizations Immunizations up to date: Yes Hx Diphtheria, Pertussis, Tetanus Vaccination: Yes Hx Pneumococcal Vaccination: 02/09/14 Vertical Provider Document - CONSTITUTIONAL Notes: PHYSICAL EXAMINATION: GENERAL: Well-appearing, well-nourished and in no acute distress. HEAD: Atraumatic, normocephalic. EYES: Pupils equal round extraocular movements intact, conjunctiva are normal. ENT: Nares patent NECK: Normal range of motion, no nuchal rigidity. LUNGS: No respiratory distress Musculoskeletal: Normal range of motion NEUROLOGICAL: Normal speech, normal gait. PSYCH: Normal mood, normal affect. SKIN: Warm, Dry, normal turgor, no rashes or lesions noted. - INFECTION CONTROL TRAVEL OUTSIDE OF THE [place] IN LAST 30 DAYS: No Course - Re-evaluation Re-evalutation: Patient was initially seen by provider in triage who ordered a head CT which was normal. Blood work was also unremarkable. Patient has what appears to be a typical migraine. She states the migraine feels like her usual migraines. She was given Tylenol and Zofran by provider in triage. Will order additional medications for headache management. Patient is declining IV medications while order them IM. Patient reports feeling much improved after administration of headache medications here in the emergency department. She will be discharged home in stable condition. I did write her prescription for some Zofran for her nausea as well as Fioricet for any symptomatic headache relief needed. Patient encouraged to follow-up with primary care. The patient's emergency department workup and current diagnosis were explained to the patient and or family. Follow-up instructions were provided. Medications if prescribed were discussed. Instructions for when to return to the emergency department including specific worrisome symptoms were discussed with the patient and/or family. - Vital Signs Vital signs: Temp Pulse Resp BP Pulse Ox 97.8 F 83 16 128/82 H 100 02/27/19 02:54 02/27/19 02:54 02/27/19 02:54 02/27/19 02:54 02/27/19 02:54 - Laboratory Result Diagrams: 02/26/19 23:00 02/26/19 23:00 Laboratory results interpreted by me: 02/26/19 23:00 Glucose 255 H Discharge - Discharge Clinical Impression: Migraine Qualifiers: Migraine type: unspecified Status migrainosus presence: without status migrainosus Intractability: not intractable Qualified Code(s): G43.909 - Migraine, unspecified, not intractable, without status migrainosus Nausea & vomiting Qualifiers: Vomiting type: unspecified Vomiting Intractability: non-intractable Qualified Code(s): R11.2 - Nausea with vomiting, unspecified Condition: Stable Disposition: HOME, SELF-CARE Additional Instructions: Migraine Headache The physician feels that your symptoms are due to a migraine attack. Migraines are caused by changes in the blood vessels of the head. Arteries go into spasm, often causing warning symptoms that a headache may begin soon. As the spasm goes away, the vessels dilate and throb, causing the pounding pain of a migraine headache. Migraines often cause nausea and vomiting. The treatment of headaches varies with severity and cause of pain. Not all headaches need pain shots -- in fact, there is evidence that using narcotics for headaches may make them worse in the long run. The physician will determine the therapy that's in your best interest for this particular headache. Medications are available that may prevent migraines, or stop them as they first occur. If one medication is not helpful, try another. If migraines are frequent, be patient -- follow the doctor's recommendations. Call the physician if you are worsening, or if new symptoms arise. Prescriptions: Butalb/Acetaminophen/Caffeine [Fioricet (50-325-40 mg) Tablet] 1 tab PO Q4HP PRN #15 tab PRN Reason: Ondansetron [Zofran Odt 4 mg Tablet] 1 - 2 tab PO Q4H PRN #15 tab.rapdis PRN Reason: For Nausea/Vomiting Forms: Return to Work [facility]: [facility] [Primary Care Provider] - Follow up as needed
--- NOTE | 2019-02-27 03:16 | ER Document Report ---
HPI - HPI Time Seen by Provider: 02/26/19 22:51 Pain Level: 4 - NEURO Neurology: REPORTS: Headache - REPRODUCTIVE Reproductive: DENIES: : Past Medical History - General Information source: Patient - Social History Smoking Status: Current Every Day Smoker Chew tobacco use (# tins/day): No Frequency of alcohol use: None Drug Abuse: None Family History: DM, Hypertension Patient has suicidal ideation: No Patient has homicidal ideation: No - Past Medical History Cardiac Medical History: Reports: Hx Hypercholesterolemia, Hx Hypertension Pulmonary Medical History: Reports: Hx Bronchitis, Hx COPD, Hx Pneumonia Denies: Hx Asthma Neurological Medical History: Reports: Hx Migraine Endocrine Medical History: Reports: Hx Diabetes Mellitus Type 2 Renal/ Medical History: Denies: Hx Peritoneal Dialysis GI Medical History: Reports: Hx Gastritis Musculoskeletal Medical History: Reports Hx Musculoskeletal Trauma Psychiatric Medical History: Denies: Hx Depression Traumatic Medical History: Reports: Hx Fractures - Ankle/foot Past Surgical History: Reports: Hx Oral Surgery - wisdom, Hx Orthopedic Surgery - Right ankle, Hx Tonsillectomy, Hx Tubal Ligation - Immunizations Immunizations up to date: Yes Hx Diphtheria, Pertussis, Tetanus Vaccination: Yes Hx Pneumococcal Vaccination: 02/09/14 Vertical Provider Document - INFECTION CONTROL TRAVEL OUTSIDE OF THE [place] IN LAST 30 DAYS: No Course - Vital Signs Vital signs: Temp Pulse Resp BP Pulse Ox 97.8 F 83 16 128/82 H 100 02/27/19 02:54 02/27/19 02:54 02/27/19 02:54 02/27/19 02:54 02/27/19 02:54 - Laboratory Result Diagrams: 02/26/19 23:00 02/26/19 23:00 Laboratory results interpreted by me: 02/26/19 23:00 Glucose 255 H Discharge - Discharge [facility]errals: [facility] [Primary Care Provider] - Follow up as needed
[2019-02-27 06:37] VITALS: BP 127/83
== END 2019-02-27 06:20 | disposition home or self-care (01) ==
LOC: ER 22:27
DX: G43.909 Migraine, unspecified, not intractable, without status migrainosus (principal); R11.2 Nausea with vomiting, unspecified; F17.200 Nicotine dependence, unspecified, uncomplicated; H53.149 Visual discomfort, unspecified; I10 Essential (primary) hypertension; J44.9 Chronic obstructive pulmonary disease, unspecified; E11.9 Type 2 diabetes mellitus without complications
CPT/HCPCS: 36415; 85025; 80053; 70450; J1200; J1885; S0119; J0780; 96372; 96374; 99284

== ENCOUNTER 2019-05-21 19:13 | Emergency (ER) | payer SELFPAY ==
--- NOTE | 2019-05-21 20:04 | ER Document Report ---
ED Medical Screen (RME) - General Chief Complaint: Sinus Congestion Stated Complaint: SORE THROAT,EAR PAIN,COUGH Time Seen by Provider: 05/21/19 19:59 TRAVEL OUTSIDE OF THE [place] IN LAST 30 DAYS: No - HPI Notes: 05/21/19 20:02 Patient is a 44-year-old female with history of diabetes who presents complaint of nasal congestion and discharge, sinus pressure, bilateral ear pain, dry cough, sore throat that began over the past day. She has not noticed any fever. Patient did have a tonsillectomy a few years ago, but feels like she has strep again. I have treated and performed a rapid initial assessment of this patient. A comprehensive ED assessment and evaluation of the patient, analysis of test results and completion of medical decision making process will be conducted by additional ED providers. PHYSICAL EXAMINATION: GENERAL: Well-appearing, well-nourished and in no acute distress. A&Ox4. Answers questions appropriately. Lungs: Grossly CTAB without retractions. Throat: Tonsils absent, no airway compromise. Mild erythema. No exudates. TM's: w/o bulging or erythema b/l. No obvious perforation. - Related Data Allergies/Adverse Reactions: Penicillins Allergy (Verified 01/20/19 16:33) Home Medications: Levamere. Metfomin Past Medical History - Past Medical History Cardiac Medical History: Reports: Hx Hypercholesterolemia, Hx Hypertension Pulmonary Medical History: Reports: Hx Bronchitis, Hx COPD, Hx Pneumonia Denies: Hx Asthma Neurological Medical History: Reports: Hx Migraine Endocrine Medical History: Reports: Hx Diabetes Mellitus Type 2 Renal/ Medical History: Denies: Hx Peritoneal Dialysis GI Medical History: Reports: Hx Gastritis Musculoskeltal Medical History: Reports Hx Musculoskeletal Trauma Psychiatric Medical History: Denies: Hx Depression Traumatic Medical History: Reports: Hx Fractures - Ankle/foot Past Surgical History: Reports: Hx Oral Surgery - wisdom, Hx Orthopedic Surgery - Right ankle, Hx Tonsillectomy, Hx Tubal Ligation - Immunizations Immunizations up to date: Yes Hx Diphtheria, Pertussis, Tetanus Vaccination: Yes Physical Exam - Vital signs Vitals: Temp Pulse Resp BP Pulse Ox 98.5 F 108 H 20 141/83 H 96 05/21/19 19:31 05/21/19 19:31 05/21/19 19:31 05/21/19 19:31 05/21/19 19:31 Course - Vital Signs Vital signs: Temp Pulse Resp BP Pulse Ox 98.5 F 108 H 20 141/83 H 96 05/21/19 19:31 05/21/19 19:31 05/21/19 19:31 05/21/19 19:31 05/21/19 19:31
[2019-05-21] MEDS ORDERED: DEXAMETHASONE SOD PHOS INJ 10 MG/1 ML VIAL IM ONE (23:12)
[2019-05-21] MEDS ORDERED: AZITHROMYCIN 250 MG TABLET PO ONE (23:12)
--- NOTE | 2019-05-21 23:17 | ER Document Report ---
HPI - HPI Time Seen by Provider: 05/21/19 19:59 Pain Level: 5 Context: Patient is a 44-year-old female that comes to the emergency department for chief complaint of sinus pain and pressure, sore throat, occasional cough, some chills, and ear pressure bilaterally. She states she has had sinus congestion pressure for over a week now but today she felt much more pain, she states she feels like her "face is puffing out", her throat has become more sore as well and she has felt overall worse. She denies vomiting, fever, headache, difficulty breathing, abdominal pain, chest pain. She does have type 2 diabetes. She also is a history of strep throat. She states she has been exposed to a lot of viruses over the past couple of weeks. - EENT EENT: REPORTS: Sore Throat, Ear Pain - RESPIRATORY Respiratory: REPORTS: Coughing - REPRODUCTIVE Reproductive: DENIES: : Past Medical History - General Information source: Patient - Social History Smoking Status: Current Every Day Smoker Frequency of alcohol use: None Drug Abuse: None Lives with: Family Family History: DM, Hypertension Patient has suicidal ideation: No Patient has homicidal ideation: No - Past Medical History Cardiac Medical History: Reports: Hx Hypercholesterolemia, Hx Hypertension Pulmonary Medical History: Reports: Hx Bronchitis, Hx COPD, Hx Pneumonia Denies: Hx Asthma Neurological Medical History: Reports: Hx Migraine Endocrine Medical History: Reports: Hx Diabetes Mellitus Type 2 Renal/ Medical History: Denies: Hx Peritoneal Dialysis GI Medical History: Reports: Hx Gastritis Musculoskeletal Medical History: Reports Hx Musculoskeletal Trauma Psychiatric Medical History: Denies: Hx Depression Traumatic Medical History: Reports: Hx Fractures - Ankle/foot Past Surgical History: Reports: Hx Oral Surgery - wisdom, Hx Orthopedic Surgery - Right ankle, Hx Tonsillectomy, Hx Tubal Ligation - Immunizations Immunizations up to date: Yes Hx Diphtheria, Pertussis, Tetanus Vaccination: Yes Hx Pneumococcal Vaccination: 02/09/14 Vertical Provider Document - CONSTITUTIONAL General Appearance: WD/WN, No Apparent Distress - INFECTION CONTROL TRAVEL OUTSIDE OF THE [place] IN LAST 30 DAYS: No - HEENT HEENT: Atraumatic, Normocephalic. negative: Normal ENT Exam - Tender over maxillary sinuses, worse on the left, rhinorrhea noted, oropharyngeal exam shows mild postnasal drip but otherwise unremarkable, patent airway, normal tongue, unremarkable ears bilaterally, unremarkable eye exam - NECK Neck: Normal Inspection - RESPIRATORY Respiratory: Breath Sounds Normal, No Respiratory Distress - CARDIOVASCULAR Cardiovascular: Regular Rate, Regular Rhythm - GI/ABDOMEN Gastrointestinal: Abdomen Soft, Abdomen Non-Tender - BACK Back: Normal Inspection - MUSCULOSKELETAL/EXTREMETIES Musculoskeletal/Extremeties: MAEW, FROM, Non-Tender - NEURO Level of Consciousness: Awake, Alert, Appropriate Motor/Sensory: No Motor Deficit, No Sensory Deficit - DERM Integumentary: Warm, Dry, No Rash Course - Re-evaluation Re-evalutation: Patient with tender sinuses, symptoms lasting reportedly over a week, sinus congestion, postnasal drainage, clear lungs, unremarkable vital signs. Patient is requesting steroids and antibiotics. Allergic to penicillin so placed on azithromycin after discussion. I did advise that steroids will raise her blood sugar, she states she has had dexamethasone with excellent results and no difficulties in the past so this was given. Discussed follow-up and return precautions. Patient states appreciation and agreement. - Vital Signs Vital signs: Temp Pulse Resp BP Pulse Ox 98.5 F 108 H 20 141/83 H 96 05/21/19 19:31 05/21/19 19:31 05/21/19 19:31 05/21/19 19:31 05/21/19 19:31 Discharge - Discharge Clinical Impression: Sinusitis Qualifiers: Sinusitis location: maxillary Chronicity: acute Recurrence: non-recurrent Qualified Code(s): J01.00 - Acute maxillary sinusitis, unspecified Upper respiratory infection Qualifiers: URI type: unspecified URI Qualified Code(s): J06.9 - Acute upper respiratory infection, unspecified Condition: Stable Disposition: HOME, SELF-CARE Additional Instructions: Your strep test is negative. Your evaluation is consistent with a sinus infection, take antibiotics as prescribed to completion. You were given dexamethasone to help with your symptoms, this does increase your glucose, avoid any carbohydrates, drink plenty of fluids, and take your regular medications. Please follow close with your primary care physician. Return if you worsen including spiking fevers, inability to swallow, difficulty breathing, vomiting, or any other concerning or worsening symptoms. Prescriptions: Azithromycin [Zithromax 250 mg Tablet] 250 mg PO ASDIR PRN #4 tablet PRN Reason: Forms: Return to Work Referrals: [facility] [Primary [facility]] - Follow up as needed
[2019-05-21 23:42] VITALS: BP 139/86
== END 2019-05-21 23:44 | disposition home or self-care (01) ==
LOC: ER 19:13
DX: J01.00 Acute maxillary sinusitis, unspecified (principal); J06.9 Acute upper respiratory infection, unspecified; J34.89 Other specified disorders of nose and nasal sinuses; J02.9 Acute pharyngitis, unspecified; R05 Cough; R68.83 Chills (without fever); R09.82 Postnasal drip; E11.9 Type 2 diabetes mellitus without complications; F17.200 Nicotine dependence, unspecified, uncomplicated; J44.9 Chronic obstructive pulmonary disease, unspecified; I10 Essential (primary) hypertension; Z87.01 Personal history of pneumonia (recurrent); Z20.828 Contact with and (suspected) exposure to other viral communicable diseases
CPT/HCPCS: 99283; 96372; 87070; 87880; J1100

== ENCOUNTER 2019-07-06 15:54 | Emergency (ER) | payer SELFPAY ==
[2019-07-06 16:25] VITALS: BP 143/81
--- NOTE | 2019-07-06 16:51 | ER Document Report ---
ED Fall - General Chief Complaint: Fall Stated Complaint: FALL/RIGHT SIDE LEG AND ARM PAIN Time Seen by Provider: 07/06/19 16:46 Primary Care Provider: [facility] [Primary Care Provider] - Follow up as needed Notes: CHIEF COMPLAINT: Injuries post fall HPI: 44-year-old female presenting to the emergency department complaining of right anterior thigh and right shoulder pain after mechanical fall yesterday slipped coming down the stairs landing on her right shoulder. Denies head injury but does complain of a mild headache. Denies weakness numbness or tingling in the extremities other than attempting to lift things with the right arm secondary to pain in the shoulder. Denies chest pain flank pain abdominal pain. Patient has been able to weight-bear ROS: See HPI - all other systems were reviewed and are otherwise negative Constitutional: no fever Eyes: no drainage, no blurred vision ENT: no runny nose, no sore throat Cardiovascular: no chest pain Resp: no SOB, no cough GI: no vomiting, no diarrhea, no abdominal pain : no dysuria Integumentary: no rash Allergy: no hives Musculoskeletal: + extremity pain or swelling Neurological: no numbness/tingling, no weakness MEDICATIONS: I agree with the patient medications as charted by the RN. ALLERGIES: I agree with the allergies as charted by the RN. PAST MEDICAL HISTORY/PAST SURGICAL HISTORY: Reviewed and agree as charted by RN. SOCIAL HISTORY: Reviewed and agree as charted by RN. FAMILY HISTORY: No significant familial comorbid conditions directly related to patient complaint EXAM: Reviewed vital signs as charted by RN. CONSTITUTIONAL: Alert and oriented and responds appropriately to questions. Well-appearing; well-nourished, mild distress secondary to pain HEAD: Normocephalic; atraumatic EYES: PERRL; Conjunctivae clear, sclerae non-icteric ENT: normal nose; no rhinorrhea; moist mucous membranes; pharynx without lesions noted, no uvula edema or deviation, no tonsillar hypertrophy, phonation normal NECK: Supple without meningismus; non-tender; no cervical lymphadenopathy, no masses CARD: RRR; no murmurs, no clicks, no rubs, no gallops; symmetric distal pulses RESP: Normal chest excursion without splinting or tachypnea; breath sounds clear and equal bilaterally; no wheezes, no rhonchi, no rales, pulse oximetry 98% on room air not hypoxic ABD/GI: Normal bowel sounds; non-distended; soft, non-tender, no rebound, no guarding; no palpable organomegaly or masses. BACK: The back appears normal and is non-tender to palpation, there is no CVA tenderness EXT: There is tenderness to the right trapezius region with spasm on palpation. Mild tenderness around right shoulder girdle is noted especially with range of motion. There is no tenderness over the right hip on palpation, patient is able to weight-bear. There is tenderness over the right anterior thigh without visible bruising. SKIN: Normal color for age and race; warm; dry; good turgor; no acute lesions noted NEURO: Moves all extremities equally; Motor and sensory function intact PSYCH: The patient's mood and manner are appropriate. Grooming and personal hygiene are appropriate. MDM: 44-year-old female with injury to the anterior right thigh, right shoulder and right trapezius region from a fall. The fall occurred greater than 36 hours ago, no indication for imaging of the head at this time she is neurologically intact. Will obtain x-ray imaging to evaluate for fracture. TRAVEL OUTSIDE OF THE [place] IN LAST 30 DAYS: No - Related data Allergies/Adverse Reactions: Penicillins Allergy (Verified 01/20/19 16:33) Past Medical History - Social History Smoking Status: Unknown if Ever Smoked Family History: DM, Hypertension Patient has suicidal ideation: No Patient has homicidal ideation: No - Past Medical History Cardiac Medical History: Reports: Hx Hypercholesterolemia, Hx Hypertension Pulmonary Medical History: Reports: Hx Bronchitis, Hx COPD, Hx Pneumonia Denies: Hx Asthma Neurological Medical History: Reports: Hx Migraine Endocrine Medical History: Reports: Hx Diabetes Mellitus Type 2 Renal/ Medical History: Denies: Hx Peritoneal Dialysis GI Medical History: Reports: Hx Gastritis Musculoskeletal Medical History: Reports Hx Musculoskeletal Trauma Psychiatric Medical History: Denies: Hx Depression Traumatic Medical History: Reports: Hx Fractures - Ankle/foot Past Surgical History: Reports: Hx Oral Surgery - wisdom, Hx Orthopedic Surgery - Right ankle, Hx Tonsillectomy, Hx Tubal Ligation - Immunizations Immunizations up to date: Yes Hx Diphtheria, Pertussis, Tetanus Vaccination: Yes Hx Pneumococcal Vaccination: 02/09/14 Physical Exam - Vital signs Vitals: Temp Pulse Resp BP Pulse Ox 98.8 F 94 16 143/81 H 98 07/06/19 16:24 07/06/19 16:24 07/06/19 16:24 07/06/19 16:24 07/06/19 16:24 Course - Re-evaluation Re-evalutation: 07/06/19 18:00 X-ray imaging does not show evidence of fracture will treat symptomatically refer to orthopedics - Vital Signs Vital signs: Temp Pulse Resp BP Pulse Ox 98.8 F 94 16 143/81 H 98 07/06/19 16:24 07/06/19 16:24 07/06/19 16:24 07/06/19 16:24 07/06/19 16:24 Discharge - Discharge Clinical Impression: Fall (on) (from) other stairs and steps, initial encounter Strain of shoulder, right Qualifiers: Encounter type: initial encounter Qualified Code(s): S46.911A - Strain of unspecified muscle, fascia and tendon at shoulder and upper arm level, right arm, initial encounter Contusion of thigh, right Qualifiers: Encounter type: initial encounter Qualified Code(s): S70.11XA - Contusion of right thigh, initial encounter Condition: Stable Disposition: HOME, SELF-CARE Instructions: Muscle Strain ([facility]) Additional Instructions: Medications as prescribed no driving if taking muscle relaxers. Follow-up closely with orthopedics for further evaluation and treatment call for appointment. X-ray imaging did not show evidence of a fracture or broken bone today. Warm heat to the right trapezius and neck region as well as the thigh to help with spasm Prescriptions: Cyclobenzaprine HCl [Flexeril 10 mg Tablet] 10 mg PO TIDP PRN #15 tab PRN Reason: Diclofenac Sodium [Voltaren 50 Mg Tablet.] 50 mg PO BID #20 tablet. [facility] [Primary Care Provider] - Follow up as needed KATHERINE VALIENTE MD [ACTIVE STAFF] - Follow up as needed
--- NOTE | 2019-07-06 17:57 | RADIOLOGY REPORT (SQ) ---
EXAM DESCRIPTION: FEMUR RIGHT COMPLETED DATE/TIME: 07/06/2019 5:28 pm REASON FOR STUDY: fall COMPARISON: None. NUMBER OF VIEWS: Two views. TECHNIQUE: Two radiographic images acquired of the right femur to include hip and knee in at least o ne projection. LIMITATIONS: None. FINDINGS: MINERALIZATION: Normal. BONES: No acute fracture. No worrisome bone lesions. SOFT TISSUES: No obvious swelling or foreign body. OTHER: No other significant finding. IMPRESSION: NO RADIOGRAPHIC EVIDENCE OF ACUTE INJURY. TECHNICAL DOCUMENTATION: JOB ID: [id number] [place]-72 2010 [employer]- All Rights Reserved Reading location - IP/workstation name: [email or web address]
--- NOTE | 2019-07-06 17:58 | RADIOLOGY REPORT (SQ) ---
EXAM DESCRIPTION: SHOULDER RIGHT 2 OR MORE VIEWS COMPLETED DATE/TIME: 07/06/2019 5:28 pm REASON FOR STUDY: fall COMPARISON: None. NUMBER OF VIEWS: Three views. TECHNIQUE: Internal rotation, external rotation, and Y view images acquired of the right shoulder. LIMITATIONS: None. FINDINGS: MINERALIZATION: Normal. BONES: No acute fracture. No worrisome bone lesions. JOINTS: No dislocation. VISUALIZED LUNGS AND RIBS: No pneumothorax. No rib fracture. SOFT TISSUES: No radiopaque foreign body. OTHER: No other significant finding. IMPRESSION: NO RADIOGRAPHIC EVIDENCE OF ACUTE INJURY. TECHNICAL DOCUMENTATION: JOB ID: [id number] [place]-72 2010 [employer]- All Rights Reserved Reading location - IP/workstation name: [email or web address]
[2019-07-06] MEDS ORDERED: KETOROLAC TROMETHAMINE 60 MG/2 ML SDV IM ONE (18:00)
== END 2019-07-06 18:25 | disposition home or self-care (01) ==
LOC: ER 15:54
DX: S46.911A Strain of unspecified muscle, fascia and tendon at shoulder and upper arm level, right arm, initial encounter (principal); S70.11XA Contusion of right thigh, initial encounter; R51 Headache; W10.9XXA Fall (on) (from) unspecified stairs and steps, initial encounter; E78.00 Pure hypercholesterolemia, unspecified; I10 Essential (primary) hypertension; E11.9 Type 2 diabetes mellitus without complications; Z88.0 Allergy status to penicillin; Z98.51 Tubal ligation status
CPT/HCPCS: 99283; 96372; 73552; 73030; J1885

== ENCOUNTER 2020-01-15 19:06 | Emergency (ER) | payer SELFPAY ==
[2020-01-15 19:23] VITALS: BP 146/78
--- NOTE | 2020-01-15 19:39 | ER Document Report ---
HPI - HPI Time Seen by Provider: 01/15/20 19:26 Pain Level: 5 Notes: 44-year-old female patient presenting to the emergency department with complaints of right elbow pain that radiates up her arm. She states that this has been going on for a few days. She denies any trauma or injury. She does report that she has previously been diagnosed with tennis elbow in this area, she states she has tried using her braces for her elbow as well as Tylenol and ibuprofen without relief. - ROS Systems Reviewed and Negative: Yes All other systems reviewed and negative - REPRODUCTIVE Reproductive: DENIES: : - MUSCULOSKELETAL Musculoskeletal: REPORTS: Extremity pain - R elbow Past Medical History - General Information source: Patient - Social History Smoking Status: Current Every Day Smoker Frequency of alcohol use: None Family History: DM, Hypertension Patient has homicidal ideation: No - Past Medical History Cardiac Medical History: Reports: Hx Hypercholesterolemia, Hx Hypertension Pulmonary Medical History: Reports: Hx Bronchitis, Hx COPD, Hx Pneumonia Denies: Hx Asthma Neurological Medical History: Reports: Hx Migraine Endocrine Medical History: Reports: Hx Diabetes Mellitus Type 2 Renal/ Medical History: Denies: Hx Peritoneal Dialysis GI Medical History: Reports: Hx Gastritis Musculoskeletal Medical History: Reports Hx Musculoskeletal Trauma Psychiatric Medical History: Denies: Hx Depression Traumatic Medical History: Reports: Hx Fractures - Ankle/foot Past Surgical History: Reports: Hx Oral Surgery - wisdom, Hx Orthopedic Surgery - Right ankle, Hx Tonsillectomy, Hx Tubal Ligation - Immunizations Immunizations up to date: Yes Hx Diphtheria, Pertussis, Tetanus Vaccination: Yes Hx Pneumococcal Vaccination: 02/09/14 Vertical Provider Document - CONSTITUTIONAL Notes: PHYSICAL EXAMINATION: GENERAL: Well-appearing, well-nourished and in no acute distress. HEAD: Atraumatic, normocephalic. EYES: Pupils equal round extraocular movements intact, conjunctiva are normal. ENT: Nares patent NECK: Normal range of motion LUNGS: No respiratory distress Musculoskeletal: Normal range of motion, no swelling, erythema, ecchymosis or obvious deformity noted to right elbow. There is slight pain with range of motion. Strong pulses distally, normal cap refill. NEUROLOGICAL: Normal speech, normal gait. PSYCH: Normal mood, normal affect. SKIN: Warm, Dry, normal turgor, no rashes or lesions noted. - INFECTION CONTROL TRAVEL OUTSIDE OF THE [place] IN LAST 30 DAYS: No Course - Re-evaluation Re-evalutation: Patient with likely tennis elbow. Discussed imaging, patient declined imaging as there was no trauma so likely nothing would be found on x-ray. She will be prescribed a short course of pain medication, she was encouraged to take ibuprofen, she was encouraged to start using her brace. She will follow-up with primary care for a referral to orthopedics if her pain persists. - Vital Signs Vital signs: Temp Pulse Resp BP Pulse Ox 98.2 F 86 16 146/78 H 97 01/15/20 19:20 01/15/20 19:20 01/15/20 19:20 01/15/20 19:20 01/15/20 19:20 Discharge - Discharge Clinical Impression: Lateral epicondylitis (tennis elbow) Qualifiers: Laterality: right Qualified Code(s): M77.11 - Lateral epicondylitis, right elbow Condition: Stable Disposition: HOME, SELF-CARE Additional Instructions: Tennis Elbow (Lateral Epicondylitis) You have lateral epicondylitis of the elbow, also called tennis elbow. This is a tendonitis at the point where the top-side forearm muscles attach to the outer side of the elbow. This is caused by repeated minor trauma or overuse, often during racquet sports or repetitive manual labor. In tennis, a faulty backhand stroke is usually the cause. Treat the tendonitis with antiinflammatory pain medication such as ibuprofe n. Apply warmth to the area for 15 to 20 minutes, about 4 times a day. A wrap or "tennis elbow brace" that compresses the area may help. Steroid injections or surgery are occasionally required for severe cases that don't heal. Avoid or limit any activity that aggravates the pain. Stop racquet sports and golf for 4 to 6 weeks. Tennis players should make sure that they have a proper backhand after the injury heals. Return if you develop worsening pain, loss of mobility in the elbow, severe swelling, or numbness or weakness in the arm. Prescriptions: Hydrocodone/Acetaminophen [[place] 5-325 mg Tablet] 1 tab PO Q6HP PRN #12 tablet PRN Reason: Ketorolac Tromethamine [Toradol 10 mg Tablet] 10 mg PO Q6HP PRN #20 tablet PRN Reason: Forms: Return to Work [facility] [Primary [facility] Provider] - Follow up as needed
== END 2020-01-15 19:45 | disposition home or self-care (01) ==
LOC: ER 19:06
DX: M77.11 Lateral epicondylitis, right elbow (principal); M25.521 Pain in right elbow; F17.200 Nicotine dependence, unspecified, uncomplicated; E78.00 Pure hypercholesterolemia, unspecified; I10 Essential (primary) hypertension; E11.9 Type 2 diabetes mellitus without complications
CPT/HCPCS: 99284